=== PATIENT | male | born 1980 | race Caucasian/White ===

== ENCOUNTER 2016-07-31 18:06 | Emergency (ER) | payer OTHER ==
[~2016-07-31] VITALS: Ht 185.4 cm; Wt 93.3 kg
[~2016-07-31 18:06] MED LIST: FLX10 PO; KETO10TA PO
[2016-07-31 18:16] VITALS: TEMP 37.5; Ht 185.4 cm; Wt 93.3 kg
--- NOTE | 2016-07-31 19:11 | EMERGENCY ROOM VISIT NOTE ---
History Report prepared by Jennifer: [place] Under the Supervision of: Dr. Adams Linton M.D. First contact with patient: 18:51 Chief Complaint: ANXIETY Stated Complaint: MENTAL HEALTH EVAL, SLURRING WORDS, ACTING WIERD History of Present Illness The patient is a 36 year old male who presents to the Emergency Room with complaints of worsening anxiety that began prior to arrival. The patient states that recently he has had an increase in stress in his life. He states that his recently had a complicated delivery and was flown to [place]. 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 He states that his mother has a history of manic depression, but he denies any diagnosis of anxiety or depression. The patient notes that he has had a decrease in sleep recently. He states that today he went to his PCP's office and was slurring his words. The patient states that he was prescribed Klonopin. He states that since then he has been feeling numb. The patient states that he was instructed to come to the emergency department for further work up. He denies any suicidal or homicidal ideation. The patient notes that he has difficulty connecting things. Source of History: patient Onset: prior to arrival Position: other (global) Quality: other (anxiety) Timing: worsening Associated Symptoms: + numbness Note: Associated symptoms: Increased stress, decrease in sleep Review of Systems See HPI for pertinent positives & negatives. A total of 10 systems reviewed and were otherwise negative. Past Medical & Surgical Medical Problems: (1) Anxiety (2) Asthma (3) Asthma, Unspecified (4) DDD (degenerative disc disease), cervical (5) Dental infection (6) Epilepsy (7) History of seizures (8) Personal History, Pneumonia (Recurrent) (9) Syncope (10) Tobacco Use Disorder Surgical Problems: (1) H/O colonoscopy (2) H/O esophagogastroduodenoscopy (3) History of cholecystectomy (4) S/P cholecystectomy Family History FH: HTN (hypertension) FH: cancer FH: gallbladder disease FH: heart disease GRANDFATHER FH: migraines Social History Smoking Status: Never Smoker Alcohol Use: none Drug Use: none Marital Status: Housing Status: lives with significant other Occupation Status: employed Current/Historical Medications Scheduled PRN [Anti-Anxiety], 1 TAB PO DAILY PRN for PRN Allergies Coded Allergies: Diazepam (Verified Allergy, Severe, WAS TOLD "NOT TO TAKE", 07/31/16) Codeine (Verified Allergy, Mild, ITCHING, 07/31/16) Gadobutrol (Verified Allergy, Unknown, became code purple from [id number] adm, 07/31/16) Gadolinium Derivatives (Verified Adverse Reaction, Severe, Unresponsive requiring endotracheal intubation, 07/31/16) Unresponsive requiring endotracheal intubation visit [id number] Uncoded Allergies: CONTRAST MEDIA (Allergy, Severe, STOPPED BREATHING, 06/08/15) Physical Exam Vital Signs Date Time Temp Pulse Resp B/P Pulse Ox O2 Delivery O2 Flow Rate FiO2 07/31/16 21:06 71 18 116/68 95 07/31/16 18:16 37.5 90 18 123/81 94 Room Air Physical Exam GENERAL: Patient is in no acute distress. HEENT: No acute trauma, normocephalic atraumatic, mucous membranes moist, no nasal congestion, no scleral icterus. NECK: No stridor, no adenopathy, no meningismus, trachea is midline. LUNGS: Clear to auscultation bilaterally, no wheeze, no rhonchi, breath sounds equal. HEART: Without murmurs gallops or rubs, regular rate and rhythm. ABDOMEN: Soft, nontender, bowel sounds positive, no hernias, no peritonitis. EXTREMITIES: No cyanosis or edema, full range of motion of all the joints without pain or difficulty, no signs for acute trauma. NEUROLOGIC: Oriented x 3, no acute motor or sensory deficits, no focal weakness. SKIN: No rash, no jaundice, no diaphoresis. PSYCH: Somewhat anxious, cooperative. Admits to increased anxiety and stress, denies suicidal ideation. Medical Decision & Procedures Laboratory Results 07/31/16 19:27 07/31/16 19:27 Test 07/31/16 18:44 07/31/16 19:27 Urine Color YELLOW Urine Appearance CLEAR (CLEAR) Urine pH 5.0 (4.5-7.5) Urine Specific [place] 1.031 (1.000-1.030) Urine Protein NEG (NEG) Urine Glucose (UA) NEG (NEG) Urine Ketones NEG (NEG) Urine Occult Blood NEG (NEG) Urine Nitrite NEG (NEG) Urine Bilirubin NEG (NEG) Urine Urobilinogen NEG (NEG) Urine Leukocyte Esterase NEG (NEG) Urine Opiates Screen NEG (NEG) Urine Methadone, Qualitative NEG (NEG) Urine Barbiturates NEG (NEG) Urine Phencyclidine (PCP) Level NEG (NEG) Ur Amphetamine/Methamphetamine NEG (NEG) MDMA (Ecstasy) Screen NEG (NEG) Urine Benzodiazepines Screen NEG (NEG) Urine Cocaine Metabolite NEG (NEG) Urine Marijuana (THC) NEG (NEG) Red Blood Count 4.81 M/uL (4.7-6.1) Mean Corpuscular Volume 85.9 fL (80-100) Mean Corpuscular Hemoglobin 30.8 pg (25-34) Mean Corpuscular Hemoglobin Concent 35.8 g/dl (32-36) RDW Standard Deviation 40.8 fL (36.4-46.3) RDW Coefficient of Variation 13.0 % (11.5-14.5) Mean Platelet Volume 9.2 fL (7.4-10.4) Anion Gap 9.0 mmol/L (3-11) Est Creatinine Clear Calc Drug Dose 121.7 ml/min Estimated GFR () 120.3 Estimated GFR (Non- 103.8 BUN/Creatinine Ratio 13.5 (10-20) Calcium Level 9.0 mg/dl (8.5-10.1) Total Bilirubin 0.8 mg/dl (0.2-1) Aspartate Amino Transf (AST/SGOT) 38 U/L (15-37) Alanine Aminotransferase (ALT/SGPT) 89 U/L (12-78) Alkaline Phosphatase 54 U/L (45-117) Total Protein 7.5 gm/dl (6.4-8.2) Albumin 4.3 gm/dl (3.4-5.0) Globulin 3.2 gm/dl (2.5-4.0) Albumin/Globulin Ratio 1.3 (0.9-2) Thyroid Stimulating Hormone (TSH) 0.892 uIu/ml (0.300-4.500) Salicylates Level < 1.7 mg/dl (2.8-20) Acetaminophen Level < 2 ug/ml (10-30) Ethyl Alcohol mg/dL < 3.0 mg/dl (0-3) Laboratory results reviewed by me. ECG Indication: other (anxiety) Rate (beats per minute): 70 Rhythm: normal sinus Findings: no acute ischemic change, no ectopy ED Course 1853: The patient was evaluated in room A6. A complete history and physical exam was performed. Medical Decision The patient is a 36 year old male who presents to the ED with complaints of anxiety. Differential diagnoses considered include drug or alcohol abuse, electrolyte imbalance, thyroid disorder, anxiety, situational anxiety, depression. There is no leukocytosis or concerning anemia. No significant electrolyte abnormality, kidney failure or hepatitis. The patient appears to be in a euthyroid state. Urinalysis does not show infection. Urine tox was negative. Aspirin, Tylenol and alcohol levels were undetectable. EKG showed a sinus rhythm, no acute ischemia. The patient is doing well, he was felt medically clear. He was seen by the psychiatry caser. The patient is being discharged home with continued outpatient care. He will take his medications as prescribed by his doctor's office for his anxiety. Patient has agreed to return here for suicidal thoughts , worsening of his anxiety or if not doing well as an outpatient. Impression Primary Impression: Anxiety Scribe Attestation The scribe's documentation has been prepared under my direction and personally reviewed by me in its entirety. I confirm that the note above accurately reflects all work, treatment, procedures, and medical decision making performed by me. Departure Information Dispostion Home / Self-Care Referrals Rocio Gonzalez M.D. (MEDICAL) (PCP) Forms HOME CARE DOCUMENTATION FORM, IMPORTANT VISIT INFORMATION Patient Instructions My [facility] Additional Instructions meds as prescribed by your doctor for anxiety return if feeling suicidal or if things are worsening all lab testing today was ok
[2016-07-31 19:24] LABS: URINE APPEARANCE CLEAR (CLEAR); URINE BILIRUBIN NEG (NEG); URINE COLOR YELLOW; URINE NITRITE NEG (NEG); URINE SPECIFIC GRAVITY 1.031 (1.000-1.030); UROBILINOGEN NEG (NEG); ZZUR CULT IF INDIC CLEAN CATCH NO
[2016-07-31 19:38] LABS: BENZODIAZEPINE, URINE NEG (NEG); COCAINE,URINE NEG (NEG); PHENCYCLIDINE, URINE NEG (NEG)
[2016-07-31 19:40] LABS: HEMATOCRIT 41.3 % (42-52); MEAN CELL VOLUME 85.9 fL (80-100); MEAN CORPUSCULAR HEMOGLOBIN 30.8 pg (25-34); MEAN CORPUSCULAR HGB CONC 35.8 g/dl (32-36); MEAN PLATELET VOLUME 9.2 fL (7.4-10.4); PLATELET COUNT 256 K/uL (130-400); RED BLOOD COUNT 4.81 M/uL (4.7-6.1); WHITE BLOOD COUNT 6.33 K/uL (4.8-10.8)
[2016-07-31 19:42] LABS: MANUAL MICROSCOPIC REQUIRED? NO; REVIEW REQ? NO
[2016-07-31 20:00] LABS: ACETAMINOPHEN < 2 ug/ml (10-30); BUN/CREATININE RATIO 13.5 (10-20); CREATININE 0.93 mg/dl (0.60-1.40); POTASSIUM 3.6 mmol/L (3.5-5.1)
[2016-07-31 20:10] LABS: ALB/GLOB RATIO 1.3 (0.9-2); THYROID STIMULATING HORMONE 0.892 uIu/ml (0.300-4.500)
[2016-07-31] MEDS ORDERED: ANTI-ANXIETY PO (20:42)
[2016-07-31 21:06] VITALS: BP 116/68; PULSE 71; O2SAT 95
== END 2016-07-31 21:07 | disposition home or self-care (01) ==
LOC: C.EDB 18:07 → C.EDA 21:07
DX: F41.9 Anxiety disorder, unspecified (principal); J45.909 Unspecified asthma, uncomplicated; G40.909 Epilepsy, unspecified, not intractable, without status epilepticus; M50.30 Other cervical disc degeneration, unspecified cervical region; Z87.01 Personal history of pneumonia (recurrent); Z90.49 Acquired absence of other specified parts of digestive tract; Z98.890 Other specified postprocedural states; Z81.8 Family history of other mental and behavioral disorders; Z82.49 Family history of ischemic heart disease and other diseases of the circulatory system; Z82.0 Family history of epilepsy and other diseases of the nervous system

== ENCOUNTER 2016-10-29 11:34 | Emergency (ER) | payer OTHER ==
[~2016-10-29] VITALS: Ht 185.4 cm; Wt 93.8 kg
[~2016-10-29 11:34] MED LIST changes: +ANTI-ANXIETY PO; -FLX10 PO; -KETO10TA PO
[2016-10-29 11:44] VITALS: TEMP 36.9; Ht 185.4 cm; Wt 93.8 kg
[2016-10-29] MEDS ORDERED: CEFTRIAXONE SOD INJ 1 GM ADDVIAL IV STA (12:33)
[2016-10-29 13:03] LABS: BASO % 0.1 %; BASO ABS # 0.01 K/uL (0-0.2); COMPLETE YES; EOS % 1.1 %; HEMATOCRIT 41.4 % (42-52); IG% 0.2 %; LYMPH ABS # 1.63 K/uL (1.2-3.4); MEAN CELL VOLUME 86.8 fL (80-100); MEAN CORPUSCULAR HGB CONC 34.5 g/dl (32-36); MONO % 6.8 %; NEUT % 71.8 %; PLATELET COUNT 232 K/uL (130-400); RED BLOOD COUNT 4.77 M/uL (4.7-6.1); WHITE BLOOD COUNT 8.13 K/uL (4.8-10.8)
[2016-10-29 13:16] LABS: CALCIUM 9.1 mg/dl (8.5-10.1)
[2016-10-29 13:20] LABS: BLOOD UREA NITROGEN 11 mg/dl (7-18); C-REACTIVE PROTEIN < 0.29 mg/dl (0-0.29); CARBON DIOXIDE 28 mmol/L (21-32); CHLORIDE 105 mmol/L (98-107); GLUCOSE 87 mg/dl (70-99); SODIUM 140 mmol/L (136-145)
--- NOTE | 2016-10-29 13:22 | DIAGNOSTIC IMAGING REPORT ---
LEFT INDEX FINGER 3 VIEWS HISTORY: Left index finger swelling. LEFT 2ND FINGER, EVAL INFECTION COMPARISON: None. FINDINGS: There is no fracture or dislocation. Soft tissue swelling most pronounced at the PIP joint. No radiopaque foreign bodies. IMPRESSION: No fractures. Soft tissue swelling within the left index finger. Electronically signed by: Edinson Lim M.D. 10/29/2016 1:20 PM Dictated Date/Time: 10/29/2016 1:20 PM
[2016-10-29] MEDS ORDERED: SULF800T23 PO (13:50)
[2016-10-29] MEDS ORDERED: CEPH500C PO (13:50)
--- NOTE | 2016-10-29 13:51 | EMERGENCY ROOM VISIT NOTE ---
History First contact with patient: 11:55 Chief Complaint: FINGER PAIN Stated Complaint: SWELLING TO HAND-DRILLED A BIT INTO FINGER History of Present Illness Patient is a [id number] 36-year-old white male who presents to emergency department for evaluation of left second finger pain and swelling times one day. He states that he was doing some work on his deck about 5 days ago, and accidentally drilled a drill bit into the palmar aspect of the left second finger. He notes that the drill skipped off of the screw, puncturing the finger, just proximal to the PIP crease. He cleansed it with soap and water at that time. He states that there was fairly significant bleeding initially that was controlled with pressure. He states that it was initially swollen, but then the swelling went down and he was able to use an move the hand and finger normally until just yesterday. He states that the finger became circumferentially swollen, warm and slightly red. He notes pain that radiates into the dorsum and the palmar aspect of the hand. It is worse with any movement of the finger. He rates his discomfort a 8/10. He denies any fever or chills. No drainage or discharge from the site. His tetanus is up-to- date. He does have a history of cellulitis and skin abscess, denies a history of MRSA. Review of Systems Review of systems as per HPI. All other systems reviewed were negative. 10 systems reviewed. 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 See Problem List. Family History FH: HTN (hypertension) FH: cancer FH: gallbladder disease FH: heart disease GRANDFATHER FH: migraines Social History Smoking Status: Never Smoker Alcohol Use: none Drug Use: none Marital Status: Housing Status: lives with significant other Occupation Status: employed Current/Historical Medications Scheduled Cephalexin Monohydrate (Keflex), 500 MG PO QID Sulfa/Trimethoprim (Bactrim Ds 800MG/160MG), 1 TAB PO BID Allergies Coded Allergies: Diazepam (Verified Allergy, Severe, WAS TOLD "NOT TO TAKE", 10/29/16) Codeine (Verified Allergy, Mild, ITCHING, 10/29/16) Gadobutrol (Verified Allergy, Unknown, became code purple from [id number] adm, 10/29/16) Gadolinium Derivatives (Verified Adverse Reaction, Severe, Unresponsive requiring endotracheal intubation, 10/29/16) Unresponsive requiring endotracheal intubation visit [id number] Uncoded Allergies: CONTRAST MEDIA (Allergy, Severe, STOPPED BREATHING, 06/08/15) Physical Exam Vital Signs Date Time Temp Pulse Resp B/P Pulse Ox O2 Delivery O2 Flow Rate FiO2 10/29/16 13:56 87 16 132/74 98 10/29/16 11:44 36.9 94 18 129/80 98 Room Air Physical Exam CONSTITUTIONAL: Patient is a well-appearing 36-year-old white male who is awake and alert and in no acute distress. Vital signs are stable. CARDIOVASCULAR: Regular rate and rhythm. Peripheral pulses easily palpable. RESPIRATORY: Breath sounds equal and clear to auscultation without wheezes, rales, or rhonchi heard. Full and equal chest expansion without accessory muscle use or retractions. MUSCULOSKELETAL: Examination of the left hand show a small scabbed over puncture wound on the palmar aspect of the left second finger, just proximal to the PIP crease. His second finger is circumferentially swollen. Primary tenderness is noted over the PIP joint and in the proximal phalanx. Minimal discomfort over the DIP joint. He does have some discomfort over the MCP joint. The finger is slightly erythematous, not overtly hot to the touch or cellulitic. There is no fluctuance, no drainage or discharge from the puncture wound. He can be hyperextended slightly, has discomfort in the palmar aspect of his finger. He can be flexed fully, limited only by soft tissue swelling. There is no lymphangitic streaking noted. Range of motion of the thumb and third fourth and fifth fingers are full. Pulses are easily palpable. Sensation light touch is intact. INTEGUMENTARY: No lesions or rash, normal skin turgor. LYMPH: No lymphadenopathy. Medical Decision & Procedures ER Provider Diagnostic Interpretation: LEFT INDEX FINGER 3 VIEWS HISTORY: Left index finger swelling. LEFT 2ND FINGER, EVAL INFECTION COMPARISON: None. FINDINGS: There is no fracture or dislocation. Soft tissue swelling most pronounced at the PIP joint. No radiopaque foreign bodies. IMPRESSION: No fractures. Soft tissue swelling within the left index finger. Laboratory Results 10/29/16 12:50 Red Blood Count 4.77, Mean Corpuscular Volume 86.8, Mean Corpuscular Hemoglobin 30.0, Mean Corpuscular Hemoglobin Concent 34.5, Mean Platelet Volume 9.0, Neutrophils (%) (Auto) 71.8, Lymphocytes (%) (Auto) 20.0, Monocytes (%) (Auto) 6.8, Eosinophils (%) (Auto) 1.1, Basophils (%) (Auto) 0.1, Neutrophils # (Auto) 5.83, Lymphocytes # (Auto) 1.63, Monocytes # (Auto) 0.55, Eosinophils # (Auto) 0.09, Basophils # (Auto) 0.01 10/29/16 12:50 Test 10/29/16 12:50 White Blood Count 8.13 K/uL (4.8-10.8) Red Blood Count 4.77 M/uL (4.7-6.1) Hemoglobin 14.3 g/dL (14.0-18.0) Hematocrit 41.4 % (42-52) Mean Corpuscular Volume 86.8 fL (80-100) Mean Corpuscular Hemoglobin 30.0 pg (25-34) Mean Corpuscular Hemoglobin Concent 34.5 g/dl (32-36) Platelet Count 232 K/uL (130-400) Mean Platelet Volume 9.0 fL (7.4-10.4) Neutrophils (%) (Auto) 71.8 % Lymphocytes (%) (Auto) 20.0 % Monocytes (%) (Auto) 6.8 % Eosinophils (%) (Auto) 1.1 % Basophils (%) (Auto) 0.1 % Neutrophils # (Auto) 5.83 K/uL (1.4-6.5) Lymphocytes # (Auto) 1.63 K/uL (1.2-3.4) Monocytes # (Auto) 0.55 K/uL (0.11-0.59) Eosinophils # (Auto) 0.09 K/uL (0-0.5) Basophils # (Auto) 0.01 K/uL (0-0.2) RDW Standard Deviation 41.9 fL (36.4-46.3) RDW Coefficient of Variation 13.1 % (11.5-14.5) Immature Granulocyte % (Auto) 0.2 % Immature Granulocyte # (Auto) 0.02 K/uL (0.00-0.02) Erythrocyte Sedimentation Rate 3 mm/hr (0-14) Anion Gap 7.0 mmol/L (3-11) Est Creatinine Clear Calc Drug Dose 125.7 ml/min Estimated GFR () 125.1 Estimated GFR (Non- 108.0 BUN/Creatinine Ratio 12.0 (10-20) Calcium Level 9.1 mg/dl (8.5-10.1) C-Reactive Protein < 0.29 mg/dl (0-0.29) Medications Administered Medications (Trade) Dose Ordered Sig/Maricel Route Start Time Stop Time Status Last Admin Dose Admin Ceftriaxone Sodium (Rocephin Inj) 1 gm NOW STAT IV 10/29/16 12:33 10/29/16 12:35 DC 10/29/16 12:35 1 GM ED Course The patient was seen and evaluated as above. His old records were reviewed. I am familiar with him from prior visits. He has a history of cellulitis, and a left thigh abscess in 2014 which grew pansensitive sensitive Staph aureus. IV lock was initiated and laboratory studies were collected. X-rays of the left hand were obtained and findings noted soft tissue swelling without evidence for radiopaque foreign body. Patient was treated with Rocephin 1 g IV. CBC with differential, ESR, CRP and BMP were performed. He does not have an elevated white count or elevation of his inflammatory markers at this time. Differential diagnoses entertained included cellulitis, abscess, infectious tenosynovitis, tendon laceration, foreign body, among others. The patient will be placed on Keflex and Bactrim. There is no drainage or discharge to culture. Patient was encouraged to watch the area closely over the next 24-48 hours and to monitor for any worsening signs of infection. If he notes this, he should return to the emergency department immediately for further care and evaluation. He expressed understanding of this and was agreeable. He declined prescription analgesia. Medical Decision See ED Course. Impression Primary Impression: Finger infection Departure Information Prescriptions Sulfa/Trimethoprim (Bactrim Ds 800MG/160MG) Tab 1 TAB PO BID, #20 TAB Prov: Racheal Garcia PA 10/29/16 Cephalexin Monohydrate (Keflex) 500 Mg Cap 500 MG PO QID, #40 CAP Prov: Racheal Garcia PA 10/29/16 Referrals Rocio Gonzalez M.D. (MEDICAL) (PCP) Chris Fonseca MD Patient Instructions My [facility] Additional Instructions Cephalexin(Keflex) 500mg: Take one pill four times daily for 10 days for your skin infection. All antibiotics can cause diarrhea. If this occurs and you feel worse or it does not resolve in 1-2 days follow up with your doctor or return to the Emergency Department as this could be signs of serious underlying problems. Any medication can cause an allergic reaction, stop the pills immediately and return to the ER for rash, hives, breathing difficulties, or swelling. Trimethoprim-Sulfamethoxazole(Bactrim DS): Take one pill twice daily for 10 days for your skin infection. All antibiotics can cause diarrhea. If this occurs and you feel worse or it does not resolve in 1-2 days follow up with your doctor or return to the Emergency Department as this could be signs of serious underlying problems. Any medication can cause an allergic reaction, stop the pills immediately and return to the ER for rash, hives, breathing difficulties, or swelling. Ibuprofen(Motrin, Advil) may be used for fever or pain. Use 600mg every six hours as needed. Take with food. Avoid using more than 2400mg in a 24 hour period. Do not use 2400mg per day for more than three consecutive days without physician direction. Prolonged inappropriate use can lead to stomach upset or ulcers. This is available over the counter and typically comes in 200mg tablets. (AND/OR) Acetaminophen(Tylenol) may be used for fever or pain. Use 1000mg every eight hours as needed. Avoid using more than 3000mg in a 24 hour period. This is available over the counter. Rest and drink plenty of fluids. Continue current medications. Return to the ER for severe pain, persistent fevers, spreading redness, or any worsening of your condition. Follow up with orthopedic hand surgery (Dr. Fonseca at [facility]) in 1-2 days for a recheck of the current condition.
[2016-10-29 13:56] VITALS: BP 132/74; PULSE 87; O2SAT 98
== END 2016-10-29 13:57 | disposition home or self-care (01) ==
LOC: C.EDB 11:35 → C.EDD 13:57
DX: L08.9 Local infection of the skin and subcutaneous tissue, unspecified (principal); S61.231A Puncture wound without foreign body of left index finger without damage to nail, initial encounter; W29.8XXA Contact with other powered hand tools and household machinery, initial encounter; Y92.018 Other place in single-family (private) house as the place of occurrence of the external cause; F41.9 Anxiety disorder, unspecified; J45.909 Unspecified asthma, uncomplicated; M50.90 Cervical disc disorder, unspecified, unspecified cervical region; G40.909 Epilepsy, unspecified, not intractable, without status epilepticus; Z87.01 Personal history of pneumonia (recurrent); Z82.49 Family history of ischemic heart disease and other diseases of the circulatory system; Z80.9 Family history of malignant neoplasm, unspecified; Z83.79 Family history of other diseases of the digestive system

== ENCOUNTER 2017-01-01 00:39 | Emergency (ER) | payer OTHER ==
[~2017-01-01] VITALS: Ht 185.4 cm; Wt 91.6 kg
[~2017-01-01 00:39] MED LIST changes: -ANTI-ANXIETY PO; +CEPH500C PO; +SULF800T23 PO
[2017-01-01 00:45] VITALS: TEMP 36.6; Ht 185.4 cm; Wt 91.6 kg
[2017-01-01] MEDS ORDERED: CYCL10TA6 PO (01:41)
[2017-01-01] MEDS ORDERED: PERCOCET HOME PACK PO ONE (01:45)
[2017-01-01] MEDS ORDERED: HYDR-5688 PO (02:11)
--- NOTE | 2017-01-01 02:13 | EMERGENCY ROOM VISIT NOTE ---
History First contact with patient: 00:51 Chief Complaint: ALLERGIC REACTION Stated Complaint: HAND PAIN,ALLERGIC REACTION? Nursing Triage Summary: Pt complains of open wounds and swelling to bilateral hands. It started Thursday morning. Pt thinks he is having a reaction to a new concrete that he was using. History of Present Illness The patient is a 36 year old male who presents to the Emergency Room with complaints of pain of the bilateral hands. The patient states that he had been working with [place] [employer] yesterday morning and afternoon. He reports that a few hours after he began working with this material, he began having pain in the hands and noticed redness to the fingertips and between the fingers. He then put a rubber gloves on and continued working. He states that the symptoms seemed to worsen over the next few hours. He has not worked with this type of cement in the past. He rates his discomfort a 4/10. He denies any numbness or weakness. Review of Systems A complete 10 point review of systems was reviewed with the patient with pertinent positives and negatives as per history of present illness. All else were negative. 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 (13) Personal History, Pneumonia (Recurrent) (14) Syncope (15) Tobacco Use Disorder Surgical Problems: (1) H/O colonoscopy (2) H/O esophagogastroduodenoscopy (3) History of cholecystectomy (4) S/P cholecystectomy Family History FH: HTN (hypertension) FH: cancer FH: gallbladder disease FH: heart disease GRANDFATHER FH: migraines Social History Smoking Status: Never Smoker Alcohol Use: none Drug Use: none Marital Status: Housing Status: lives with significant other Occupation Status: employed Current/Historical Medications Scheduled PRN Cyclobenzaprine Hcl (Flexeril), 10 MG PO DAILY PRN for Muscle Spasms Hydrocodone/Acetaminophen 5MG/325MG (Bladen 5MG/325MG), 1 TABLET PO Q4H PRN for Pain Physical Exam Vital Signs Date Time Temp Pulse Resp B/P (MAP) Pulse Ox O2 Delivery O2 Flow Rate FiO2 8/3/17 02:36 68 16 115/87 97 01/01/17 00:45 36.6 80 16 127/84 96 Room Air Physical Exam VITALS: Vitals are noted on the nurse's note and reviewed by myself. Vital signs stable. GENERAL: This is a 36-year-old male, in no acute distress, nondiaphoretic, well- developed well-nourished. SKIN: There are erythematous ulcerations between the fingers of the right hand and on the distal finger pads of the left hand. The skin of bilateral hands and arms is very ashy and dry appearing. The fingers are minimally swollen. Sensation is intact. MUSCULOSKELETAL: Full range of motion of bilateral hands. NEURO: Patient was alert and oriented. Medical Decision & Procedures Medications Administered Medications (Trade) Dose Ordered Sig/Maricel Route Start Time Stop Time Status Last Admin Dose Admin Oxycodone/ Acetaminophen (Percocet 5/ 325MG Home Pack) 1 homepack UD ONCE PO 01/01/17 01:45 01/01/17 01:46 DC 01/01/17 02:24 1 HOMEPACK Medical Decision Differential diagnosis includes burn, contact dermatitis, allergic reaction, among others. The patient was evaluated as above. Exam is consistent with a contact dermatitis or a mild burn. I did discuss the case with the Poison Control Center, who recommended conservative treatment for such as that for a contact dermatitis or mild burn. The wounds were dressed in bacitracin and nonadherent dressings by nursing staff. The patient was given Percocet for pain. He was instructed to follow-up with his primary care provider as needed. He verbalized understanding of my assessment and treatment plan and was discharged home in good condition. [place] Drug Monitoring Program Search Results: patient reviewed within database, no issues identified Medication Reconcilliation Current Medication List: was personally reviewed by me Blood Pressure Screening Patient's blood pressure: Normal blood pressure Impression Primary Impression: Contact dermatitis Departure Information Dispostion Home / Self-Care Condition GOOD Prescriptions Hydrocodone/Acetaminophen 5MG/325MG (Bladen 5MG/325MG) Tab 1 TABLET PO Q4H Y for Pain, #10 TAB For Initial Treatment Prov: Tangela Shearer ., MARIUSZ 01/01/17 Referrals Rocio Gonzalez M.D. (MEDICAL) (PCP) Patient Instructions My [facility] Additional Instructions You have been treated in the Emergency Department today for a burn on your hands. You have received pain medicine in the emergency department which impairs your ability to operate a vehicle. It is illegal for you to drive after receiving these medicines. You have been prescribed Bladen to be used for pain control. This is a narcotic medication. You cannot drive or consume alcohol while on this medicine. This medicine should only be used for pain that cannot be controlled with over-the- counter pain medicines. Apply antibiotic ointment to the fingers and areas of abrams. Look for signs of infection of the wound including: increased pain, swelling, foul discharge, streaking, or increased temperature. If any of these are noticed you should return to the Emergency Department for further assessment and treatment. For pain control, you can use the following [id number] medicines (if >12 yo): - Regular strength (325mg/tab) Tylenol (acetaminophen) 2 tabs every 4-6 hours as needed. Do not exceed 12 tablets in a 24 hour period. Avoid taking more than 4 grams (4000 mg) of Tylenol per day. This includes any other sources of acetaminophen you may take on a regular basis. - Regular strength (200 mg/tab) Advil (ibuprofen) 1-2 tabs every 4-6 hours as needed. Do not exceed a dose of 3200 mg per day. Return for any signs of infection, such as increasing redness, increasing swelling, drainage or fevers. Return to the emergency department if your symptoms worsen despite treatment course outlined above. Problem Qualifiers Primary Impression: Contact dermatitis Contact dermatitis type: irritant
[2017-01-01 02:36] VITALS: BP 115/87; PULSE 68; O2SAT 97
== END 2017-01-01 02:25 | disposition home or self-care (01) ==
LOC: C.EDB 00:40
DX: L23.5 Allergic contact dermatitis due to other chemical products (principal); F41.9 Anxiety disorder, unspecified; J45.909 Unspecified asthma, uncomplicated; M50.90 Cervical disc disorder, unspecified, unspecified cervical region; G40.909 Epilepsy, unspecified, not intractable, without status epilepticus; Z87.01 Personal history of pneumonia (recurrent); Z82.49 Family history of ischemic heart disease and other diseases of the circulatory system; Z80.9 Family history of malignant neoplasm, unspecified; Z83.79 Family history of other diseases of the digestive system

== ENCOUNTER 2017-02-09 12:58 | Inpatient (IN) | payer OTHER ==
[~2017-02-09] VITALS: Ht 185.4 cm; Wt 101.6 kg
[~2017-02-09 12:58] MED LIST changes: -CEPH500C PO; +CYCL10TA6 PO; +HYDR-5688 PO; -SULF800T23 PO
[2017-02-09] MEDS ORDERED: MoRPHine SULFATE 10 MG/ML CARP/VIAL IV STA (13:20)
--- NOTE | 2017-02-09 13:43 | DIAGNOSTIC IMAGING REPORT ---
LEFT FOREARM 2 VIEWS ROUTINE CLINICAL HISTORY: foreign body left arm COMPARISON: None. DISCUSSION: No fractures or dislocations are visualized. There is nail shaped foreign body within the volar are soft tissues of the mid forearm. This measures 4.7 cm in length. IMPRESSION: 1. No acute fractures 2. Nail shaped foreign body within the volar soft tissues of the mid forearm Electronically signed by: Alvarez Patel M.D. 02/09/2017 1:42 PM Dictated Date/Time: 02/09/2017 1:41 PM
[2017-02-09] MEDS ORDERED: ONDANSETRON INJ 2 MG/ML 2 ML VIAL ONE ×2 (13:51→15:26)
[2017-02-09] MEDS ORDERED: CEFAZOLIN SOD 1000MG/55 ML D5W IV STA (14:15)
[2017-02-09] MEDS ORDERED: MoRPHine SULFATE 4 MG/ML 1 ML CARP\\VIAL IV STA (14:37)
--- NOTE | 2017-02-09 14:59 | Medical Consult ---
Consultation Date of Consultation: Feb 09, 2017. Attending Physician: Reason for Consultation: L forearm Nail gun Injury History of Present Illness 36 y.o male RHD, who accidentally shot a Finishing Nail into his left forearm. He placed a tourniquet around his upper arm and came into the ER. After x-rays were obtained I was consulted. He feels Numbness and tingling of all his fingers. Past Medical/Surgical History Medical Problems: (1) Anxiety Status: Chronic (2) Anxiety Status: Acute (3) Asthma Permanent Comment: remote- no recent issues Status: Chronic (4) DDD (degenerative disc disease), cervical Status: Chronic (5) Epilepsy Status: Chronic (6) Finger infection Status: Acute (7) History of seizures Status: Chronic Surgical Problems: (1) H/O colonoscopy Status: Chronic (2) H/O esophagogastroduodenoscopy Status: Chronic (3) S/P cholecystectomy Status: Chronic Family History FH: HTN (hypertension) FH: cancer FH: gallbladder disease FH: heart disease GRANDFATHER FH: migraines Social History Smoking Status: Current Every Day Smoker Drug Use: none Marital Status: Housing Status: lives with significant other Occupation Status: employed Allergies Coded Allergies: Diazepam (Verified Allergy, Severe, WAS TOLD "NOT TO TAKE", 02/09/17) Codeine (Verified Allergy, Mild, ITCHING, 02/09/17) Gadobutrol (Verified Allergy, Unknown, became code purple from [id number] [facility], 02/09/17) Gadolinium Derivatives (Verified Adverse Reaction, Severe, Unresponsive requiring endotracheal intubation, 02/09/17) Unresponsive requiring endotracheal intubation visit [id number] Uncoded Allergies: CONTRAST MEDIA (Allergy, Severe, STOPPED BREATHING, 06/08/15) Review of Systems Constitutional: No fever, No chills, No sweats, No weight loss, No weakness, No fatigue, No problem reported Eyes: No problem reported ENT: + dental problems (Has dentures) Respiratory: No problem reported Cardiovascular: No problem reported Abdomen: No problem reported Musculoskeletal: + muscle pain (L forearm pain) Neurologic: + numbness/tingling (L hand) Psychiatric: No problem reported Endocrine: No problem reported Hematologic / Lymphatic: No problem reported Integumentary: + bleeding (L forearm stopped after applying tiurniquet) Physical Exam Date Time Temp Pulse Resp B/P (MAP) Pulse Ox O2 Delivery O2 Flow Rate FiO2 02/09/17 13:07 36.8 83 16 144/89 97 Room Air General Appearance: WD/WN Head: normocephalic Respiratory/Chest: normal breath sounds, no respiratory distress, no accessory muscle use Cardiovascular: regular rate, rhythm Abdomen/GI: non tender Extremities/Musculoskelatal: + pertinent finding (LUE: Slight decrease sensation to Light touch in the Median nerve distribution. 2 + radial pulse. Motor to M/R/U/ AIN/ PIN intact. Small puncture wound mid-volar forearm. No active bleeding. Mild swelling in that area. Forearm soft.) Laboratory Results RADIOGRAPHS: AP & Lateral Left forearm shows a metallic linear object in the soft tissue. Assessment & Plan IMPRESSION: L Forearm Foreign Body. PLAN: After a lengthy discussion with the patient about my above findings and reviewed his radiographs, his treatment options of observation versus surgical I &D with removal of foreign body were discussed. He would like to proceed with surgery. He will remain NPO. Ancef was started while I was performing the H& P. The risks and benefits of surgery were discussed and I consented him for surgery. He understood all my instructions and explanations; all his questions were satisfactorily addressed.
--- NOTE | 2017-02-09 15:00 | EMERGENCY ROOM VISIT NOTE ---
History First contact with patient: 13:13 Chief Complaint: ARM PAIN Stated Complaint: NAIL IN L ARM History of Present Illness The patient is a 36 year old male who presents to the Emergency Room with complaints of shooting a nail in his left arm. The patient states that he was using a nail gun at home and was holding something up above him with his left arm and shot the nail and and missed and the nail went into his left forearm. It did not come out the other side. Since that time the patient has pain in the left forearm. He also admits to some numbness in his left fingers. The patient's tetanus is up-to-date. The patient last ate at approximately 10 AM today. The patient denies any significant past medical history. The patient is not diabetic. Review of Systems 6 system review was performed and was negative unless stated otherwise in history of present illness. 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 (13) Personal History, Pneumonia (Recurrent) (14) Syncope (15) Tobacco Use Disorder Surgical Problems: (1) H/O colonoscopy (2) H/O esophagogastroduodenoscopy (3) History of cholecystectomy (4) S/P cholecystectomy Family History FH: HTN (hypertension) FH: cancer FH: gallbladder disease FH: heart disease GRANDFATHER FH: migraines Social History Smoking Status: Current Every Day Smoker Alcohol Use: none Drug Use: none Marital Status: Housing Status: lives with significant other Occupation Status: employed Current/Historical Medications Scheduled PRN Cyclobenzaprine Hcl (Flexeril), 10 MG PO DAILY PRN for Muscle Spasms Physical Exam Vital Signs Date Time Temp Pulse Resp B/P (MAP) Pulse Ox O2 Delivery O2 Flow Rate FiO2 02/09/17 14:47 75 20 135/87 100 Room Air 02/09/17 13:07 36.8 83 16 144/89 97 Room Air Physical Exam GENERAL: 28-year-old white male appears uncomfortable secondary to pain. MENTAL Status: Alert and oriented 3. LUNGS: Clear auscultation without wheezes rales or rhonchi. CARDIAC: Regular rate and rhythm without murmur. Pulses is full and equal throughout. LEFT FOREARM: No gross bony deformity noted. There is a puncture wound on the proximal anterior aspect of the forearm. There is no active bleeding. Radial pulses 2+. The patient's hand feels cool to the touch. He will not move his fingers when asked. Medical Decision & Procedures ER Provider Diagnostic Interpretation: LEFT FOREARM 2 VIEWS ROUTINE CLINICAL HISTORY: foreign body left arm COMPARISON: None. DISCUSSION: No fractures or dislocations are visualized. There is nail shaped foreign body within the volar are soft tissues of the mid forearm. This measures 4.7 cm in length. IMPRESSION: 1. No acute fractures 2. Nail shaped foreign body within the volar soft tissues of the mid forearm Electronically signed by: Alvarez Patel M.D. 02/09/2017 1:42 PM Dictated Date/Time: 02/09/2017 1:41 PM Medications Administered Medications (Trade) Dose Ordered Sig/Maricel Route Start Time Stop Time Status Last Admin Dose Admin Morphine Sulfate (MoRPHine SULFATE INJ) 6 mg NOW STAT IV 02/09/17 13:20 02/09/17 13:22 DC 02/09/17 13:51 6 MG Ondansetron HCl (Zofran Inj) 4 mg STK-MED ONCE .ROUTE 02/09/17 13:51 02/09/17 13:52 DC 02/09/17 13:54 4 MG Cefazolin Sodium (Ancef 1000mg/55 ml D5W) 1,000 mg NOW STAT IV 02/09/17 14:15 02/09/17 14:16 DC 02/09/17 14:26 1,000 MG Morphine Sulfate (MoRPHine SULFATE INJ) 4 mg NOW STAT IV 02/09/17 14:37 02/09/17 14:38 DC 02/09/17 14:46 4 MG ED Course The patient was evaluated. IV access was obtained. The patient was given morphine 6 mg IV. X-ray of the left forearm was ordered and interpreted by the radiologist and myself as above with evidence of a nail in the soft tissue. The patient was given Ancef [address] Evans was consulted he stated that he will come and evaluate the patient. He will take the patient to the OR today. Medical Decision Due to the depth of the nail orthopedics was consulted. Medication Reconcilliation Current Medication List: was personally reviewed by me Blood Pressure Screening Patient's blood pressure: Normal blood pressure Impression Primary Impression: Foreign body in left forearm Departure Information Dispostion Being Evaluated By Surgeon Condition GOOD Referrals Rocio Gonzalez M.D. (MEDICAL) (PCP) Patient Instructions My [facility] Problem Qualifiers Primary Impression: Foreign body in left forearm Encounter type: initial encounter Qualified Codes: S50.852A - Superficial foreign body of left forearm, initial encounter
[2017-02-09] MEDS ORDERED: DEXAMETHASONE SOD INJ 4 MG/ML VIAL ONE (15:26)
[2017-02-09] MEDS ORDERED: PROPOFOL IV EMULSION 10 MG/ML 20 ML VIAL IV ONE (15:26)
[2017-02-09] MEDS ORDERED: MIDAZOLAM HCL 1 MG/ML 2ML VIAL ONE ×2 (15:26→17:55)
[2017-02-09] MEDS ORDERED: FENTANYL CITRATE INJ 50 MCG/1 ML 2 ML VIAL ONE (15:26)
[2017-02-09] MEDS ORDERED: LIDOCAINE HCL 2% 2 ML VIAL (20MG/ML) ONE (15:26)
[2017-02-09] MEDS ORDERED: LIDOCAINE/EPINEPHRINE 1% 20 ML VIAL ONE (15:41)
[2017-02-09] MEDS ORDERED: BUPIVACAINE 0.5 % 5 MG/1 ML MPF 30ML VIAL ONE (15:41)
[2017-02-09] MEDS ORDERED: CEFAZOLIN SOD 1 GM VIAL ONE (15:58)
[2017-02-09] MEDS ORDERED: ROCURONIUM BROMIDE 10 MG/ML 5 ML VIAL IV ONE (15:58)
[2017-02-09] MEDS ORDERED: SODIUM CHLORIDE 0.9% 1000ML 1,000 ML IV ONE (16:15)
[2017-02-09] MEDS ORDERED: LABETALOL HCL IV 5 MG/ML 20ML IV PRN (16:30)
[2017-02-09] MEDS ORDERED: ONDANSETRON INJ 2 MG/ML 2 ML VIAL IV PRN ×2 (16:30→17:00)
[2017-02-09] MEDS ORDERED: CEFAZOLIN 1000MG/55 ML D5W 55 ML IV SCH (16:30)
[2017-02-09] MEDS ORDERED: ATROPINE SULFATE 0.1 MG/ML 5ML SYR IV PRN (16:30)
--- NOTE | 2017-02-09 16:59 | Discharge Instructions ---
Discharge Instructions Date of Service Feb 09, 2017. Admission Reason for Admission: Nail In L Arm Discharge Discharge Diagnosis / Problem: Status post removal Foriegn Body Left Forearm Discharge Goals Goal(s): Decrease discomfort, Improve function, Increase independence Activity Recommendations Activity Limitations: per Instructions/Follow-up section (No Heavy lifting 2 weeks) Lifting Limitations: no more than 10 pounds (for 2 weeks) May Resume Sexual Activity: when tolerated Shower/Bathe: may shower/bathe in 3 days Driving or Machine Use: Not while using narcotics . Instructions / Follow-Up Instructions / Follow-Up Dr. Evans in 7-10 days. Call [phone] for appointment. Current Hospital Diet Patient's current hospital diet: Regular Diet Discharge Diet Recommended Diet: Regular Diet Procedures Procedures Performed: Left Forearm Incision and Drainage - Removal Foreign Body Removal Pending Studies Studies pending at discharge: no Work Instructions Return To Work: after follow-up (2-3 days) Medical Emergencies . Who to Call and When: Medical Emergencies: If at any time you feel your situation is an emergency, please call 911 immediately. . Non-Emergent Contact Non-Emergency issues call your: Surgeon Call Non-Emergent contact if: temperature is above 101.5, your pain is not controlled, wound has increased drainage, wound has increased redness . "Provider Documentation" section prepared by Aly Evans. . VTE Core Measure Inpt VTE Proph given/why not?: Other Anticoagulation (Asprin 325 mg twice a day for 1 week), T.E.D. Stockings
[2017-02-09] MEDS ORDERED: MoRPHine SULFATE 2 MG/ML CARP IV PRN (17:00)
[2017-02-09] MEDS ORDERED: OXYCODONE/ACETAMINOPHEN 5-325 TAB PO PRN (17:00)
[2017-02-09] MEDS ORDERED: MoRPHine SULFATE 4 MG/ML 1 ML CARP\\VIAL IV PRN (17:00)
--- NOTE | 2017-02-09 17:00 | [facility] Operative Report ---
Operative Report Operative Date Feb 09, 2017. Pre-Operative Diagnosis Foreign Body, Left Forearm Post-Operative Diagnosis Foreign Body, Left Forearm Procedure(s) Performed 1) Left forearm Removal Foreign Body Removal, deep. 2) Left Forearm Incision and Drainage. Surgeon Dr. Aly Evans Scratch Brusher Surgeon(s) Hollis Goodwin MD Fellow Estimated Blood Loss 2mL Findings Nail Left forearm. Clean wound. Fluids 600 Specimens Specimen A. Removed foreign body from left forearm Drains n/a Anesthesia GET Complication(s) None Disposition Recovery Room / PACU (Stable) Indications The patient had a nail gun injury to his left forearm earlier today and is complaining of severe pain. The patient understands the risks of surgery, which include but are not limited to: bleeding, infection, re-operation, damage to nerves and arteries, continued pain and DVT. The patient understands all of these instructions and explanations, all of their questions have been satisfactorily addressed. The patient has elected to proceed with surgery and the informed consent was signed. Description of Procedure The patient was taken to the Operating Room and placed in the supine position on the operating table. After general anesthetic was administered a multidisciplinary time-out was performed identifying my initials on the left limb as the correct and operative limb. 500 milligram of intravenous Ancef were given prior to making the incision as the patient had already been given a gram of Ancef in the emergency room. The left upper extremity was prepped and draped in the usual Orthopaedic sterile fashion. Using the wound created by the injury, it was planned to extend approximately 1 cm proximally and another centimeter distally. The skin edges were injected with a 50:50 mixture of 1% lidocaine and 0.5 % Marcaine with epi for a total of 2cc. The the skin was incised. Unfortunately a track could not be found to easily find the nail. The fascia was incised exposing the underlying muscle. Using fluoroscopy the nail was identified with gentle dissection deep within the muscle belly to find the nail prior to removal. There is very minimal bleeding. The wound was clean. The wound was copiously irrigated with normal saline. The skin were closed with 3-0 Prolene. The wound was covered Xerofoam, 4 x 4's and Tegaderms. The sponge and needle counts were correct. POST-OP: Patient will ice and elevate. He may utilize Tylenol and anti- inflammatories for pain control. He will follow-up in my office within 7-10 days. I attest to the content of the Intraoperative Record and any orders documented therein. Any exceptions are noted below.
--- NOTE | 2017-02-09 17:00 | [facility] Post Operative Brief Note ---
Immediate Operative Summary Operative Date Feb 09, 2017. Pre-Operative Diagnosis Foreign Body, Left Forearm Post-Operative Diagnosis Foreign Body, Left Forearm Procedure(s) Performed Left Forearm Incision and Drainage - Removal Foreign Body Removal Surgeon Dr. Aly Evans Pedal Assembler Surgeon(s) Hollis Goodwin MD Fellow Estimated Blood Loss 2mL Findings Nail Left forearm. Fluids (cc crystalloids) 600 Specimens Specimen A. Removed foreign body from left forearm Drains n/a Anesthesia GET Complication(s) None Disposition Recovery Room / PACU (Stable)
--- NOTE | 2017-02-09 17:03 | DIAGNOSTIC IMAGING REPORT ---
FOREARM 2 VIEWS ROUTINE CLINICAL HISTORY: REMOVAL OF NAIL IN FOREARM COMPARISON STUDY: None FLUOROSCOPY TIME: 24 seconds. FINDINGS: No evidence for radiopaque foreign body IMPRESSION: No evidence for radiopaque foreign body The above report was generated using voice recognition software. It may contain grammatical, syntax or spelling errors. Electronically signed by: Chris Martinez M.D. 02/09/2017 5:02 PM Dictated Date/Time: 02/09/2017 5:01 PM
[2017-02-09] MEDS ORDERED: GLYCOPYRROLATE INJ 0.2 MG/ML VIAL ONE (17:14)
[2017-02-09] MEDS ORDERED: NEOSTIGMINE METHYLSULFATE 5 MG/5 ML SYR ONE (17:14)
--- NOTE | 2017-02-09 17:41 | Anesthesiology Progress Note ---
Anesthesia Post Op Note Date & Time Feb 09, 2017 at 17:41 Vital Signs Pain Intensity: 1 Vital Signs Past 12 Hours Date Time Temp Pulse Resp B/P (MAP) Pulse Ox O2 Delivery O2 Flow Rate FiO2 02/09/17 17:06 36.4 76 16 149/88 99 Nasal Cannula 4 02/09/17 15:39 37.1 85 16 135/88 (104) 97 Room Air 02/09/17 15:15 75 20 135/87 100 02/09/17 14:47 75 20 135/87 100 Room Air 02/09/17 13:07 36.8 83 16 144/89 97 Room Air Notes Mental Status: alert / awake / arousable, participated in evaluation Pt Amnestic to Procedure: Yes Nausea / Vomiting: adequately controlled Pain: adequately controlled Airway Patency, RR, SpO2: stable & adequate BP & HR: stable & adequate Hydration State: stable & adequate Anesthetic Complications: no major complications apparent
[2017-02-09] MEDS: HYDROmorphone INJ 2 MG/ML SYR/VIAL IV PRN ×8 (17:43→18:33)
[2017-02-09] MEDS ORDERED: NURSING VERBAL MED ORDER ONE (17:55)
[2017-02-09] MEDS: MIDAZOLAM HCL 1 MG/ML 2ML VIAL IV PRN ×2 (17:55→18:15)
[2017-02-09 18:58] VITALS: BP 139/83; PULSE 83; TEMP 37; O2SAT 99
[2017-02-09 19:25] VITALS: BP 130/81; PULSE 92; O2SAT 92
[2017-02-09] MEDS ORDERED: NALOXONE HCL 0.4 MG/1 ML VIAL/CARP ONE ×2 (19:42→20:00)
--- NOTE | 2017-02-09 20:14 | Anesthesiology Progress Note ---
Anesthesia Progress Note Date of Service Feb 09, 2017. Progress Notes Code mickey was called for patient in ACU after his recovery. I was finishing a case in the OR and by the time I got there the team had given him narcan and he was moderately awake and maintaining his oxygen saturations. He had left the PACU about an hour earlier and seemed quite awake, got some percocet in ACU. Dr Evans aware, he and the hospitalist were discussing admitting him over night.
--- NOTE | 2017-02-09 21:35 | Medical Consult ---
Consultation Date of Consultation: Feb 09, 2017. Attending Physician: Deyvi Martinez MD History of Present Illness This is a 36yo M who presented to the ER after shooting a nail into his L forearm with a nail gun. Left forearm XR showed presence of a metallic linear object in the soft tissue. Ortho was consulted and Dr. Evans performed a foreign object removal and I&D. Patient received fentanyl and versed during procedure and was sent to PACU for recovery. States that he was in extreme pain and asked for medications. Was given dilaudid, versed and percocet during this recovery time. Later, a code purple was called due to patient becoming non- responsive with low O2 saturation. Was given Narcan x 2 and was very responsive. Patient is now awake and alert, sitting up in bed watching TV. Denies any confusion, lethargy, headache, pain, CP, dyspnea, SOB. Past Medical/Surgical History Medical Problems: (1) Foreign body in left forearm Status: Chronic (2) DDD (degenerative disc disease), cervical Status: Chronic (3) Epilepsy (remote) Status: Chronic (4) H/O colonoscopy Status: Chronic (5) H/O esophagogastroduodenoscopy Status: Chronic (6) History of seizures Status: Chronic (7) S/P cholecystectomy Status: Chronic Family History FH: HTN (hypertension) FH: cancer FH: gallbladder disease FH: heart disease GRANDFATHER FH: migraines Social History Smoking Status: Current Every Day Smoker Drug Use: none Marital Status: Housing Status: lives with significant other Occupation Status: employed Allergies Coded Allergies: Diazepam (Verified Allergy, Severe, WAS TOLD "NOT TO TAKE", 02/09/17) Codeine (Verified Allergy, Mild, ITCHING, 02/09/17) Gadobutrol (Verified Allergy, Unknown, became code purple from [id number] adm, 02/09/17) Gadolinium Derivatives (Verified Adverse Reaction, Severe, Unresponsive requiring endotracheal intubation, 02/09/17) Unresponsive requiring endotracheal intubation visit [id number] Uncoded Allergies: CONTRAST MEDIA (Allergy, Severe, STOPPED BREATHING, 06/08/15) Home Medications Home Meds and Scripts Medications Dose Route/Sig Max Daily Dose Days Date Category Flexeril (Cyclobenzaprine Hcl) 10 Mg Tab 10 Mg PO DAILY PRN 01/01/17 Reported Current Inpatient Medications Current Inpatient Medications Medications (Trade) Dose Ordered Sig/Mar[place]el Route Start Time Stop Time Status Last Admin Dose Admin Sodium Chloride 1,000 ml @ 100 mls/hr Q10H ONCE IV 02/09/17 16:15 02/10/17 02:14 Ondansetron HCl (Zofran Inj) 4 mg Q4H PRN IV 02/09/17 17:00 03/11/17 16:59 Sodium Chloride 1,000 ml @ 125 mls/hr Q8H IV 02/09/17 20:45 03/11/17 20:44 UNV Review of Systems Constitutional- no fever; no weight loss Eyes- no acute visual changes ENT- no sinus drainage; no pharyngitis Pulmonary- no cough, no wheezing, no shortness of breath Cardiac- no chest pain, no palpitations, no orthopnea, no dependent edema GI- no nausea, no vomiting, no diarrhea, no melena, no hematochezia - no dysuria, no hematuria Musculoskeletal- no arthralgias, no myalgias Derm- no rashes, no new skin lesions, no changing skin lesions Hematologic- no unusual bruising, no unusual bleeding Lymphatics- no adenopathy Endocrine- no polyuria or polydipsia; no heat or cold intolerance Neuro- no headaches, no focal neurologic symptoms Psych- no anxiety, no depression Physical Exam Date Time Temp Pulse Resp B/P (MAP) Pulse Ox O2 Delivery O2 Flow Rate FiO2 02/09/17 19:25 92 16 130/81 92 Room Air 02/09/17 18:58 37 83 24 139/83 99 Room Air 02/09/17 18:50 89 16 151/80 99 Room Air 02/09/17 18:35 83 16 163/81 99 Room Air 02/09/17 18:20 80 16 159/90 99 Room Air 02/09/17 18:11 149/88 02/09/17 18:10 75 20 02/09/17 18:10 75 20 96 02/09/17 18:06 137/96 02/09/17 18:05 76 15 02/09/17 18:05 75 15 02/09/17 18:01 152/101 02/09/17 18:00 80 12 02/09/17 18:00 81 14 02/09/17 17:55 92 27 02/09/17 17:55 90 27 73 02/09/17 17:51 130/92 02/09/17 17:50 91 26 02/09/17 17:50 89 26 100 02/09/17 17:46 145/88 02/09/17 17:45 83 25 02/09/17 17:45 85 25 100 02/09/17 17:44 36.8 02/09/17 17:41 73 21 02/09/17 17:41 73 21 134/98 100 02/09/17 17:36 69 02/09/17 17:36 69 16 156/102 100 02/09/17 17:31 69 10 02/09/17 17:31 69 10 143/89 100 02/09/17 17:26 69 13 144/83 100 02/09/17 17:26 69 13 02/09/17 17:21 71 14 141/78 100 02/09/17 17:21 71 14 02/09/17 17:16 71 14 02/09/17 17:16 71 14 100 02/09/17 17:15 134/82 02/09/17 17:06 36.4 76 16 149/88 99 Nasal Cannula 4 02/09/17 15:39 37.1 85 16 135/88 (104) 97 Room Air 02/09/17 15:15 75 20 135/87 100 02/09/17 14:47 75 20 135/87 100 Room Air 02/09/17 13:07 36.8 83 16 144/89 97 Room Air General Appearance: WD/WN, no apparent distress (Sitting upright in bed watching TV. Conversational. ) Head: normocephalic, atraumatic Eyes: normal inspection, PERRL ENT: hearing grossly normal Neck: supple, thyroid normal, trachea midline Respiratory/Chest: chest non-tender, lungs clear, normal breath sounds, no respiratory distress, no accessory muscle use Cardiovascular: regular rate, rhythm, no murmur, normal peripheral pulses Abdomen/GI: normal bowel sounds, non tender, soft, no organomegaly Back: normal inspection Extremities/Musculoskelatal: normal inspection, no calf tenderness, normal capillary refill, no pedal edema, + pertinent finding (L forearm with bandage in place. Clean/dry/intact. Ice in place. ) Neurologic/Psych: no motor/sensory deficits, alert, normal mood/affect, oriented x 3 Laboratory Results Last 24 Hours Test 02/09/17 19:43 02/09/17 19:53 Bedside Glucose 109 mg/dl Assessment & Plan This is a 36yo M who presented to the ER after shooting a nail into his L forearm with a nail gun. Altered mental status: resolved -Likely 2/2 opioid and benzodiazepines -Patient is naive to both substances -Now is A&Ox4, conversational, back to baseline -CXR: unrevealing EKG pending -CBC wnl. BMP is pending -Discontinued opioids -IV Tylenol and Toradol for pain control -IVFs -Monitor on Tele -AM labs DJD in cervical, lumbar spine: -Stable -Will hold Flexeril for now DVT Ppx: SCDs Code status: FULL Dispo: Per primary Thank you for this consultation. We will follow the patient with you during their hospital stay. You can reach a member of the [facility] Hospitalist Team 22/12 via pager @ . ATTENDING ADDENDUM care coordinated with EDILSON Champion please refer to her notes for full details, I agree with her notes patient seen and examined, records reviewed by myself as well on exam, patient seen sleeping but easily rousable oriented x 3 denies any symptoms pain well controlled no other symptoms VS noted and reviewed oriented , not in distress, speaks in sentences with no effort nor accessory muscle use normal rate, regular rhythm, no murmurs clear breath sounds bilaterally non distended, soft, nontender no bipedal edema, erythema, warmth no neuro deficits AST/ALT 50/80 ASSESSMENT/PLAN> ALTERED MENTAL STATUS POST OP REMOVAL OF FOREIGN OBJECT, LEFT FOREARM likely from Opioids, Benzo - responded well to Narcan - presently asymptomatic - avoid Narcotics as much as possible ff up EKG MILD AST/ALT ELEVATION - ff up as outpatient avoid alcohol other diagnoses and plan of care as per EDILSON Champion's notes Jewel Dhillon MD
[2017-02-09 21:36] VITALS: BP 123/87; PULSE 77; TEMP 37.1; O2SAT 98; Ht 185.4 cm; Wt 101.6 kg
[2017-02-09] MEDS ORDERED: SODIUM CHLORIDE 0.9% 1000ML 1,000 ML IV SCH (21:45)
[2017-02-09 21:52] LABS: BASO % 0.1 %; BASO ABS # 0.01 K/uL (0-0.2); HEMATOCRIT 47.6 % (42-52); IG% 0.1 %; LYMPH % 20.8 %; LYMPH ABS # 1.74 K/uL (1.2-3.4); MEAN CELL VOLUME 87.3 fL (80-100); MEAN CORPUSCULAR HEMOGLOBIN 29.5 pg (25-34); MEAN PLATELET VOLUME 9.8 fL (7.4-10.4); MONO % 1.3 %; NEUT % 77.7 %; PLATELET COUNT 289 K/uL (130-400); RED BLOOD COUNT 5.45 M/uL (4.7-6.1); WHITE BLOOD COUNT 8.35 K/uL (4.8-10.8)
[2017-02-09 21:56] LABS: COMPLETE YES; MEAN CORPUSCULAR HGB CONC 33.8 g/dl (32-36)
[2017-02-09] MEDS ORDERED: KETOROLAC TROMETHAMINE 30 MG/ML VIAL IV PRN (22:00)
[2017-02-09] MEDS ORDERED: ACETAMINOPHEN IV 100 ML IV PRN (22:00)
[2017-02-09 22:19] LABS: ALB/GLOB RATIO 1.3 (0.9-2); BUN/CREATININE RATIO 11.1 (10-20); CALCIUM 9.8 mg/dl (8.5-10.1); CREATININE 1.1 mg/dl (0.60-1.40); POTASSIUM 3.6 mmol/L (3.5-5.1)
--- NOTE | 2017-02-09 23:03 | DIAGNOSTIC IMAGING REPORT ---
CHEST ONE VIEW PORTABLE HISTORY: Altered mental status. COMPARISON: Chest 08/16/2015. FINDINGS: Bibasilar linear densities. The upper lung zones are clear. The heart is normal in size. No pleural effusions. No pneumothorax. No evidence for pulmonary edema. IMPRESSION: Bibasilar linear densities are nonspecific but favor subsegmental atelectasis. Electronically signed by: Edinson Lim M.D. 02/09/2017 11:02 PM Dictated Date/Time: 02/09/2017 11:00 PM
[2017-02-09 23:05] VITALS: BP 128/80; PULSE 68; TEMP 36.6; O2SAT 100
[2017-02-10] VITALS (7 sets, daily range): BP systolic 114–125; BP diastolic 66–77; PULSE 62–72; TEMP 36.5–36.8; O2SAT 98–100
[2017-02-10 06:42] LABS: HEMATOCRIT 40.7 % (42-52); MEAN CELL VOLUME 87.7 fL (80-100); MEAN CORPUSCULAR HGB CONC 35.4 g/dl (32-36); MEAN PLATELET VOLUME 9.3 fL (7.4-10.4); PLATELET COUNT 232 K/uL (130-400); RED BLOOD COUNT 4.64 M/uL (4.7-6.1)
[2017-02-10 06:49] LABS: PROTHROMBIN TIME (PATIENT) 10.7 SECONDS (9.0-12.0)
[2017-02-10 07:14] LABS: BUN/CREATININE RATIO 14.2 (10-20); CALCIUM 8.5 mg/dl (8.5-10.1); CREATININE 0.83 mg/dl (0.60-1.40); POTASSIUM 4.1 mmol/L (3.5-5.1)
--- NOTE | 2017-02-10 08:06 | Anesthesiology Progress Note ---
Anesthesia Post Op Note Date & Time Feb 10, 2017 at 08:06 Vital Signs Vital Signs Past 12 Hours Date Time Temp Pulse Resp B/P (MAP) Pulse Ox O2 Delivery O2 Flow Rate FiO2 02/10/17 07:10 36.5 62 20 116/74 (88) 100 Nasal Cannula 2.0 02/10/17 04:00 100 Nasal Cannula 2.0 02/10/17 03:45 36.5 72 18 114/66 (82) 99 Nasal Cannula 2.0 02/10/17 00:01 100 Nasal Cannula 2.0 02/09/17 23:05 36.6 68 18 128/80 (96) 100 Nasal Cannula 2.0 02/09/17 21:36 37.1 77 16 123/87 98 Nasal Cannula 2.0 Notes Mental Status: alert / awake / arousable, participated in evaluation Pt Amnestic to Procedure: Yes Nausea / Vomiting: adequately controlled Pain: adequately controlled Airway Patency, RR, SpO2: stable & adequate BP & HR: stable & adequate Hydration State: stable & adequate Anesthetic Complications: no major complications apparent
--- NOTE | 2017-02-10 09:41 | Orthopedic Progress Note ---
Orthopedic Progress Note Date of Service Feb 10, 2017. Subjective Post OP Day: 1 Reports: feeling well, pain controlled w PO medications, Denies: complaints, chest pain, SOB, nausea / vomiting, light headedness, calf pain, using [employer] Additional Notes: Patient became unresponsive after administration of pain meds post procedure yesterday and had to be administered Narcan. Pt states that he still feels slightly "groggy" at this point, but otherwise doing well. Objective dressing C/D/I, A&O x3 Good dexterity of digits in left hand. Able to make fist. Able to resist distraction and compression of digits. Able to resist distraction of pincer grasp. Mild edema of forearm, wrist, hand & digits. Tender around surgical incision site. N/V intact. Brisk cap refill. Palpable periph pulses. Able to reach near terminal flexion and extension at Left Elbow. Date Time Temp Pulse Resp B/P (MAP) Pulse Ox O2 Delivery O2 Flow Rate FiO2 02/10/17 08:00 98 Room Air 02/10/17 07:10 36.5 62 20 116/74 (88) 100 Nasal Cannula 2.0 02/10/17 04:00 100 Nasal Cannula 2.0 02/10/17 03:45 36.5 72 18 114/66 (82) 99 Nasal Cannula 2.0 02/10/17 00:01 100 Nasal Cannula 2.0 02/09/17 23:05 36.6 68 18 128/80 (96) 100 Nasal Cannula 2.0 02/09/17 21:36 37.1 77 16 123/87 98 Nasal Cannula 2.0 02/09/17 19:25 92 16 130/81 92 Room Air 02/09/17 18:58 37 83 24 139/83 99 Room Air 02/09/17 18:50 89 16 151/80 99 Room Air 02/09/17 18:35 83 16 163/81 99 Room Air 02/09/17 18:20 80 16 159/90 99 Room Air 02/09/17 18:11 149/88 02/09/17 18:10 75 20 02/09/17 18:10 75 20 96 02/09/17 18:06 137/96 02/09/17 18:05 76 15 02/09/17 18:05 75 15 02/09/17 18:01 152/101 02/09/17 18:00 80 12 02/09/17 18:00 81 14 02/09/17 17:55 92 27 02/09/17 17:55 90 27 73 02/09/17 17:51 130/92 02/09/17 17:50 91 26 02/09/17 17:50 89 26 100 02/09/17 17:46 145/88 02/09/17 17:45 83 25 02/09/17 17:45 85 25 100 02/09/17 17:44 36.8 02/09/17 17:41 73 21 02/09/17 17:41 73 21 134/98 100 02/09/17 17:36 69 02/09/17 17:36 69 16 156/102 100 02/09/17 17:31 69 10 02/09/17 17:31 69 10 143/89 100 02/09/17 17:26 69 13 144/83 100 02/09/17 17:26 69 13 02/09/17 17:21 71 14 141/78 100 02/09/17 17:21 71 14 02/09/17 17:16 71 14 02/09/17 17:16 71 14 100 02/09/17 17:15 134/82 02/09/17 17:06 36.4 76 16 149/88 99 Nasal Cannula 4 02/09/17 15:39 37.1 85 16 135/88 (104) 97 Room Air 02/09/17 15:15 75 20 135/87 100 02/09/17 14:47 75 20 135/87 100 Room Air 02/09/17 13:07 36.8 83 16 144/89 97 Room Air Laboratory Results 24 Hours: Test 02/09/17 19:50 02/10/17 06:25 White Blood Count 8.35 K/uL Red Blood Count 5.45 M/uL Hemoglobin 16.1 g/dL 14.4 g/dL Hematocrit 47.6 % 40.7 % Mean Corpuscular Volume 87.3 fL Mean Corpuscular Hemoglobin 29.5 pg Mean Corpuscular Hemoglobin Concent 33.8 g/dl Platelet Count 289 K/uL Mean Platelet Volume 9.8 fL Neutrophils (%) (Auto) 77.7 % Lymphocytes (%) (Auto) 20.8 % Monocytes (%) (Auto) 1.3 % Eosinophils (%) (Auto) 0.0 % Basophils (%) (Auto) 0.1 % Neutrophils # (Auto) 6.48 K/uL Lymphocytes # (Auto) 1.74 K/uL Monocytes # (Auto) 0.11 K/uL Eosinophils # (Auto) 0.00 K/uL Basophils # (Auto) 0.01 K/uL Prothromb Time International Ratio 1.0 Prothrombin Time 10.7 SECONDS Assessment & Plan Assessment: Day 1 s/p foreign body excision from Left forearm with I&D, resolved pulmonary issues which resulted in being admitted to telemetry overnight for observation. Likely does not respond well to Narcotics, exacerbating his pain and increase use resulted in code purple and resolved with Narcan x 2. Plan: Will discuss findings with Dr. Evans. From orthopedic stand point patient is cleared for discharge. Discharge pending medical clearance Upon discharge Ice affected area as instructed. Use Oral Tylenol or Advil for pain relief. F/u in Clinic with Dr. Evans in 1 week. May change dressing tomorrow. I, Dr. Evans, saw and examined the patient and agree with the above findings and plan of care. He may be discharged. He needs to f/u with primary doctor in 1 week.
--- NOTE | 2017-02-10 10:46 | Discharge Summary ---
Orthopedic Discharge Summary Admission Date/Reason Feb 09, 2017 at 20:36 Altered Awareness, Transient. Discharge Date/Disposition Feb 10, 2017 Home Diagnosis Principal Diagnosis: Left forearm foreign body Secondary Diagnoses/Problems: Altered awareness Procedure(s) Performed Excision of foreign body from Left forearm with I&D Consultations Had medicine consult due to unresponsiveness after administration of narcotic pain meds that was treated with Narcan. Medication Reconciliation Patient will be discharged with use of oral OTC Tylenol or NSAIDS for pain control Admission Physical Exam As per Admitting History & Physical. Hospital Course Patient was seen in ED yesterday afternoon a nail gun he was using inadvertently fired causing a finish nail to be embedded into his Left forearm. Patient was taken to OR hand had and open excision with I&D performed. Post operatively patient was transported to PACU and after administration of IV pain meds became unresponsive and then administered Narcan for alleviation. Patient was evaluated by medicine and place in surgical ICU for overnight monitoring. After seeing patient this AM he was cleared for discharge. Patient will only use OTC Tylenol or NSAIDS for pain relief. He will need to see his PCP in the next week for eval due to elevated LFT's and will F/U with Dr. Evans in our clinic in 1 week. Discharge Instructions Please refer to the electronic Patient Visit Report (Discharge Instructions) for additional information. Additional Copies To Aly Evans MD
--- NOTE | 2017-02-10 10:46 | Progress Note ---
Internal Med Progress Note Date of Service: Feb 10, 2017. Provider Documentation: SUBJECTIVE: Seen and examined at bedside. States having some pain in LUE but controlled Denies chest pain, SOB, dizziness Family at bedside OBJECTIVE: Vital Signs-as noted below Physical Exam: General Appearance:Moderately built and nourished, no apparent distress Head: normocephalic, Atraumatic Eyes: normal inspection, EOMI, PERRL Neck: supple, Trachea midline Respiratory/Chest: Normal breath sounds, CTA Cardiovascular: S1, S2, No murmur Abdomen/GI:Soft, Non tender, Bowel sounds present Extremities/Musculoskelatal:normal inspection, no edema, LUE forearm in bandage Neurologic/Psych:grossly no focal neurological deficits Skin: normal color, warm Lab data as noted below. ASSESSMENT & PLAN: Patent is a 36yr male who presented to the ER after shooting a nail into his L forearm with a nail gun. Altered mental status: Likely 2/2 opioid and benzodiazepines, responded well to Narcan resolved back to baseline No focal deficits on exam DJD in cervical, lumbar spine: Stable s/p foreign body excision from Left forearm with I&D by POD #1 Wound care per primary team Pain control Mild elevation AST/ALT Denies Tylenol/Alcohol use Advised to follow up with as outpatient DVT Px: SCDs Code status: FULL Dispo: Per primary team Advised to follow up with in 1 week Discuss with regarding possible need for further work up of liver function test as outpatient Advised to avoid driving until cleared by Vital Signs: Date Time Temp Pulse Resp B/P (MAP) Pulse Ox O2 Delivery O2 Flow Rate FiO2 02/10/17 08:00 98 Room Air 02/10/17 07:10 36.5 62 20 116/74 (88) 100 Nasal Cannula 2.0 02/10/17 04:00 100 Nasal Cannula 2.0 02/10/17 03:45 36.5 72 18 114/66 (82) 99 Nasal Cannula 2.0 02/10/17 00:01 100 Nasal Cannula 2.0 02/09/17 23:05 36.6 68 18 128/80 (96) 100 Nasal Cannula 2.0 02/09/17 21:36 37.1 77 16 123/87 98 Nasal Cannula 2.0 02/09/17 19:25 92 16 130/81 92 Room Air 02/09/17 18:58 37 83 24 139/83 99 Room Air 02/09/17 18:50 89 16 151/80 99 Room Air 02/09/17 18:35 83 16 163/81 99 Room Air 02/09/17 18:20 80 16 159/90 99 Room Air 02/09/17 18:11 149/88 02/09/17 18:10 75 20 02/09/17 18:10 75 20 96 02/09/17 18:06 137/96 02/09/17 18:05 76 15 02/09/17 18:05 75 15 02/09/17 18:01 152/101 02/09/17 18:00 80 12 02/09/17 18:00 81 14 02/09/17 17:55 92 27 02/09/17 17:55 90 27 73 02/09/17 17:51 130/92 02/09/17 17:50 91 26 02/09/17 17:50 89 26 100 02/09/17 17:46 145/88 02/09/17 17:45 83 25 02/09/17 17:45 85 25 100 02/09/17 17:44 36.8 02/09/17 17:41 73 21 02/09/17 17:41 73 21 134/98 100 02/09/17 17:36 69 02/09/17 17:36 69 16 156/102 100 02/09/17 17:31 69 10 02/09/17 17:31 69 10 143/89 100 02/09/17 17:26 69 13 144/83 100 02/09/17 17:26 69 13 02/09/17 17:21 71 14 141/78 100 02/09/17 17:21 71 14 02/09/17 17:16 71 14 02/09/17 17:16 71 14 100 02/09/17 17:15 134/82 02/09/17 17:06 36.4 76 16 149/88 99 Nasal Cannula 4 02/09/17 15:39 37.1 85 16 135/88 (104) 97 Room Air 02/09/17 15:15 75 20 135/87 100 02/09/17 14:47 75 20 135/87 100 Room Air 02/09/17 13:07 36.8 83 16 144/89 97 Room Air Lab Results: Results Past 24 Hours Test 02/09/17 19:43 02/09/17 19:50 02/10/17 06:25 Range/Units Bedside Glucose 109 70-99 mg/dl White Blood Count 8.35 8.50 4.8-10.8 K/uL Red Blood Count 5.45 4.64 4.7-6.1 M/uL Hemoglobin 16.1 14.4 14.0-18.0 g/dL Hematocrit 47.6 40.7 42-52 % Mean Corpuscular Volume 87.3 87.7 80-100 fL Mean Corpuscular Hemoglobin 29.5 31.0 25-34 pg Mean Corpuscular Hemoglobin Concent 33.8 35.4 32-36 g/dl Platelet Count 289 232 130-400 K/uL Mean Platelet Volume 9.8 9.3 7.4-10.4 fL Neutrophils (%) (Auto) 77.7 % Lymphocytes (%) (Auto) 20.8 % Monocytes (%) (Auto) 1.3 % Eosinophils (%) (Auto) 0.0 % Basophils (%) (Auto) 0.1 % Neutrophils # (Auto) 6.48 1.4-6.5 K/uL Lymphocytes # (Auto) 1.74 1.2-3.4 K/uL Monocytes # (Auto) 0.11 0.11-0.59 K/uL Eosinophils # (Auto) 0.00 0-0.5 K/uL Basophils # (Auto) 0.01 0-0.2 K/uL RDW Standard Deviation 41.4 42.1 36.4-46.3 fL RDW Coefficient of Variation 13.0 13.2 11.5-14.5 % Immature Granulocyte % (Auto) 0.1 % Immature Granulocyte # (Auto) 0.01 0.00-0.02 K/uL Sodium Level 137 137 136-145 mmol/L Potassium Level 3.6 4.1 3.5-5.1 mmol/L Chloride Level 101 104 98-107 mmol/L Carbon Dioxide Level 27 30 21-32 mmol/L Anion Gap 9.0 3.0 3-11 mmol/L Blood Urea Nitrogen 12 12 7-18 mg/dl Creatinine 1.10 0.83 0.60-1.40 mg/dl Est Creatinine Clear Calc Drug Dose 112.3 151.2 ml/min Estimated GFR () 98.2 129.4 Estimated GFR (Non- 84.7 111.6 BUN/Creatinine Ratio 11.1 14.2 10-20 Random Glucose 111 129 70-99 mg/dl Calcium Level 9.8 8.5 8.5-10.1 mg/dl Total Bilirubin 0.7 0.2-1 mg/dl Aspartate Amino Transf (AST/SGOT) 50 15-37 U/L Alanine Aminotransferase (ALT/SGPT) 80 12-78 U/L Alkaline Phosphatase 63 45-117 U/L Total Protein 8.6 6.4-8.2 gm/dl Albumin 4.8 3.4-5.0 gm/dl Globulin 3.8 2.5-4.0 gm/dl Albumin/Globulin Ratio 1.3 0.9-2 Prothrombin Time 10.7 9.0-12.0 SECONDS Prothromb Time International Ratio 1.0 0.9-1.1
--- NOTE | 2017-02-10 10:49 | Discharge Instructions ---
Discharge Instructions Date of Service Feb 10, 2017. Admission Reason for Admission: Altered Awareness, Transient Discharge Discharge Diagnosis / Problem: s/p foreign body excision from Left forearm with I&D Discharge Goals Goal(s): Decrease discomfort, Improve function Activity Recommendations Activity Limitations: per Instructions/Follow-up section Lifting Limitations: gradually increase as tolerated Exercise/Sports Limitations: gradually increase as tolerated . Instructions / Follow-Up Instructions / Follow-Up Advised to follow up with in 1 week Discuss with regarding possible need for further work up of liver function test as outpatient Advised to avoid driving until cleared by Follow up with as advised Current Hospital Diet Patient's current hospital diet: Regular Diet Discharge Diet Recommended Diet: Regular Diet Procedures Procedures Performed: 1) Left forearm Removal Foreign Body Removal, deep. 2) Left Forearm Incision and Drainage. Pending Studies Studies pending at discharge: no Work Instructions Return To Work: after follow-up (2-3 days) Medical Emergencies . Who to Call and When: Medical Emergencies: If at any time you feel your situation is an emergency, please call 911 immediately. . Non-Emergent Contact Non-Emergency issues call your: Primary Care Provider, Specialist (Orthopedic surgen) Call Non-Emergent contact if: you have a fever, your pain is not controlled, your pain is worsening, your pain is unusual for you, your pain is concerning you, wound has increased drainage, wound has increased redness, wound has increased pain, you have any medication questions . . "Provider Documentation" section prepared by Deyvi Martinez. . VTE Core Measure Inpt VTE Proph given/why not?: Other Anticoagulation (Asprin 325 mg twice a day for 1 week), T.E.D. Stockings
== END 2017-02-10 11:58 | disposition home or self-care (01) | DRG 605 ==
LOC: C.EDB 12:59 → C.2E 20:36 → EDBEDREQ 20:42 → ENRESERV 21:11
PROVIDERS: ADMIT Internal Medicine; ATTEND Internal Medicine
PROC: 0H9EXZZ Drainage of Left Lower Arm Skin, External Approach (ICD-10-PCS; principal; 2017-02-10)
DX: S50.852A Superficial foreign body of left forearm, initial encounter (principal); R40.4 Transient alteration of awareness; J45.909 Unspecified asthma, uncomplicated; G40.909 Epilepsy, unspecified, not intractable, without status epilepticus; F41.9 Anxiety disorder, unspecified; F17.200 Nicotine dependence, unspecified, uncomplicated; Z90.49 Acquired absence of other specified parts of digestive tract; W29.4XXA Contact with nail gun, initial encounter; Z87.01 Personal history of pneumonia (recurrent); Z82.49 Family history of ischemic heart disease and other diseases of the circulatory system; Z80.9 Family history of malignant neoplasm, unspecified; Z83.79 Family history of other diseases of the digestive system

== ENCOUNTER 2017-06-19 11:21 | Inpatient (IN) | payer OTHER ==
[~2017-06-19] VITALS: Ht 185.4 cm; Wt 91.9 kg
[~2017-06-19 11:21] MED LIST changes: -HYDR-5688 PO
--- NOTE | 2017-06-19 12:39 | EMERGENCY ROOM VISIT NOTE ---
History Report prepared by Jennifer: Mannie Barriga Under the Supervision of: Dr. True Pritchard M.D. First contact with patient: 12:22 Chief Complaint: MENTAL HEALTH EVALUATION Stated Complaint: MENTAL HEALTH CHECKUP History of Present Illness The patient is a 36 year old male who presents to the Emergency Room with concerns over his own worsening mental status/anxiety that he notes has been declining for the past 10 days. The patient states that he is suicidal which is not normal for him. He claimed that if he were to kill himself he "would probably jump off of something really tall." He has not tried to hurt himself to this point. The patient claims that this past year has been particularly rough and with his two twin daughters he has not bee sleeping much. He has not had an appetite either. The patient does follow with psych at [facility], and notes that at his last meeting she thought about filing a 302 petition. He denies any drugs or alcohol. He denies any recent fevers. Source of History: patient Onset: 10 days Position: other (Psych) Quality: other (Mental status/anxiety ) Timing: worsening Associated Symptoms: No fevers Review of Systems See HPI for pertinent positives & negatives. A total of 10 systems reviewed and were otherwise negative. 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 Nurse's notes were reviewed and I agree with. Family History FH: HTN (hypertension) FH: cancer FH: gallbladder disease FH: heart disease GRANDFATHER FH: migraines Social History Smoking Status: Never Smoker Alcohol Use: none Drug Use: none Marital Status: Housing Status: lives with significant other Occupation Status: employed Current/Historical Medications No Active Prescriptions or Reported Meds Allergies Coded Allergies: Diazepam (Verified Allergy, Severe, WAS TOLD "NOT TO TAKE", 02/09/17) Codeine (Verified Allergy, Mild, ITCHING, 02/09/17) Gadobutrol (Verified Allergy, Unknown, became code purple from [id number] adm, 02/09/17) Gadolinium Derivatives (Verified Adverse Reaction, Severe, Unresponsive requiring endotracheal intubation, 02/09/17) Unresponsive requiring endotracheal intubation visit [id number] Uncoded Allergies: CONTRAST MEDIA (Allergy, Severe, STOPPED BREATHING, 06/08/15) Physical Exam Vital Signs Date Time Temp Pulse Resp B/P (MAP) Pulse Ox O2 Delivery O2 Flow Rate FiO2 06/19/17 13:08 74 16 121/81 99 Room Air 06/19/17 11:27 36.9 83 18 145/79 99 Room Air Physical Exam General: Non-ill appearing middle age male in no acute distress. HEENT: Normal cephalic atraumatic. Pupils are equal round and reactive to light. Extraocular movements are intact. Oropharynx is pink with moist mucous membranes. No swelling of the mouth lips or tongue. Neck: Supple with a midline trachea. No meningeal signs or stiffness, no JVD or bruits. No Stridor. Chest: Clear to auscultation bilaterally. No wheezes or rhonchi. No increased work of breathing. Heart: regular rate and rhythm. Abdomen: Soft nontender, nondistended without rebound guarding or rigidity. Extremities: No cyanosis clubbing or edema. No calf tenderness or assymetry Spine/Back. Non tender to palpation. No CVA tenderness Skin: Good turgor without rashes. Neurologic exam: Cranial nerves two through 12 are intact. Motor and sensation are intact and symmetrical throughout. Psych: Denies homicidal thoughts. Positive suicidal thought. Poor insight/poor judgement. Medical Decision & Procedures Laboratory Results 06/19/17 12:42 Red Blood Count 4.84, Mean Corpuscular Volume 86.4, Mean Corpuscular Hemoglobin 30.8, Mean Corpuscular Hemoglobin Concent 35.6, Mean Platelet Volume 9.0, Neutrophils (%) (Auto) 48.9, Lymphocytes (%) (Auto) 41.3, Monocytes (%) (Auto) 8.1, Eosinophils (%) (Auto) 1.1, Basophils (%) (Auto) 0.4, Neutrophils # (Auto) 2.65, Lymphocytes # (Auto) 2.24, Monocytes # (Auto) 0.44, Eosinophils # (Auto) 0.06, Basophils # (Auto) 0.02 06/19/17 12:42 Test 06/19/17 12:42 06/19/17 13:10 White Blood Count 5.42 K/uL (4.8-10.8) Red Blood Count 4.84 M/uL (4.7-6.1) Hemoglobin 14.9 g/dL (14.0-18.0) Hematocrit 41.8 % (42-52) Mean Corpuscular Volume 86.4 fL (80-100) Mean Corpuscular Hemoglobin 30.8 pg (25-34) Mean Corpuscular Hemoglobin Concent 35.6 g/dl (32-36) Platelet Count 250 K/uL (130-400) Mean Platelet Volume 9.0 fL (7.4-10.4) Neutrophils (%) (Auto) 48.9 % Lymphocytes (%) (Auto) 41.3 % Monocytes (%) (Auto) 8.1 % Eosinophils (%) (Auto) 1.1 % Basophils (%) (Auto) 0.4 % Neutrophils # (Auto) 2.65 K/uL (1.4-6.5) Lymphocytes # (Auto) 2.24 K/uL (1.2-3.4) Monocytes # (Auto) 0.44 K/uL (0.11-0.59) Eosinophils # (Auto) 0.06 K/uL (0-0.5) Basophils # (Auto) 0.02 K/uL (0-0.2) RDW Standard Deviation 41.2 fL (36.4-46.3) RDW Coefficient of Variation 12.9 % (11.5-14.5) Immature Granulocyte % (Auto) 0.2 % Immature Granulocyte # (Auto) 0.01 K/uL (0.00-0.02) Anion Gap 5.0 mmol/L (3-11) Est Creatinine Clear Calc Drug Dose 121.7 ml/min Estimated GFR () 120.3 Estimated GFR (Non- 103.8 BUN/Creatinine Ratio 12.6 (10-20) Calcium Level 9.0 mg/dl (8.5-10.1) Total Bilirubin 0.5 mg/dl (0.2-1) Aspartate Amino Transf (AST/SGOT) 26 U/L (15-37) Alanine Aminotransferase (ALT/SGPT) 55 U/L (12-78) Alkaline Phosphatase 59 U/L (45-117) Total Protein 7.8 gm/dl (6.4-8.2) Albumin 4.1 gm/dl (3.4-5.0) Globulin 3.7 gm/dl (2.5-4.0) Albumin/Globulin Ratio 1.1 (0.9-2) Thyroid Stimulating Hormone (TSH) 0.933 uIu/ml (0.300-4.500) Salicylates Level < 1.7 mg/dl (2.8-20) Acetaminophen Level < 2 ug/ml (10-30) Ethyl Alcohol mg/dL < 3.0 mg/dl (0-3) Urine Color YELLOW Urine Appearance CLOUDY (CLEAR) Urine pH 6.5 (4.5-7.5) Urine Specific [place] 1.025 (1.000-1.030) Urine Protein NEG (NEG) Urine Glucose (UA) NEG (NEG) Urine Ketones NEG (NEG) Urine Occult Blood NEG (NEG) Urine Nitrite NEG (NEG) Urine Bilirubin NEG (NEG) Urine Urobilinogen NEG (NEG) Urine Leukocyte Esterase NEG (NEG) Urine WBC (Auto) 1-5 /hpf (0-5) Urine RBC (Auto) 0-4 /hpf (0-4) Urine Hyaline Casts (Auto) 1-5 /lpf (0-5) Urine Epithelial Cells (Auto) 10-20 /lpf (0-5) Urine Bacteria (Auto) NEG (NEG) Urine Crystals CALCIUM OXALATE (NONE Urine Mucus PRESENT (NONE PRSENT) Urine Opiates Screen NEG (NEG) Urine Methadone, Qualitative NEG (NEG) Urine Barbiturates NEG (NEG) Urine Phencyclidine (PCP) Level NEG (NEG) Ur Amphetamine/Methamphetamine NEG (NEG) MDMA (Ecstasy) Screen NEG (NEG) Urine Benzodiazepines Screen NEG (NEG) Urine Cocaine Metabolite NEG (NEG) Urine Marijuana (THC) NEG (NEG) Laboratory studies as stated above per my review. ED Course 1226: Past medical records reviewed. The patient was evaluated in room A7, and a complete history and physical examination were performed. 1455: The psychiatric corrections caseworker has suggested placing the patient in [address] [place] [address]. A bed search will ensue. There will likely be a bed for the patient. Medical Decision Differential diagnosis includes; becky, depression, toxicologic, electrolyte or metabolic abnormality. This patient comes in as described above. He has a recent history of suicidal ideations and also anxiety . he does appear to have some manic behavior. he is cooperative and is willing to come into the hospital. Multiple blood tests was obtained for medical clearance. He has nothing to suggest acute electrolyte, toxicologic, metabolic or infectious etiology. He is medically cleared. He was Further evaluated by her psychiatric corrections caseworker. He did complain that he' s been having intermittent headaches and we did a CAT scan ofhis head and it is unremarkable. He will be admitted to [facility] for further treatment and evaluation. Impression Primary Impression: Suicidal ideation Additional Impressions: Depression Becky Scribe Attestation The scribe's documentation has been prepared under my direction and personally reviewed by me in its entirety. I confirm that the note above accurately reflects all work, treatment, procedures, and medical decision making performed by me. Departure Information Dispostion Mental Health Acute Care Prescriptions No Active Prescriptions or Reported Meds Referrals Rocio Gonzalez M.D. (MEDICAL) (PCP) Patient Instructions My [facility] Problem Qualifiers
[2017-06-19 13:04] LABS: BASO % 0.4 %; BASO ABS # 0.02 K/uL (0-0.2); EOS % 1.1 %; EOS ABS # 0.06 K/uL (0-0.5); HEMATOCRIT 41.8 % (42-52); HEMOGLOBIN 14.9 g/dL (14.0-18.0); IG# 0.01 K/uL (0.00-0.02); LYMPH % 41.3 %; LYMPH ABS # 2.24 K/uL (1.2-3.4); MEAN CELL VOLUME 86.4 fL (80-100); MEAN CORPUSCULAR HEMOGLOBIN 30.8 pg (25-34); MEAN CORPUSCULAR HGB CONC 35.6 g/dl (32-36); MONO % 8.1 %; MONO ABS # 0.44 K/uL (0.11-0.59); NEUT % 48.9 %; NEUT ABS # 2.65 K/uL (1.4-6.5); PLATELET COUNT 250 K/uL (130-400); RED CELL DISTRIBUTION WIDTH CV 12.9 % (11.5-14.5); RED CELL DISTRIBUTION WIDTH SD 41.2 fL (36.4-46.3); WHITE BLOOD COUNT 5.42 K/uL (4.8-10.8)
[2017-06-19 13:21] LABS: ALBUMIN 4.1 gm/dl (3.4-5.0); CREATININE 0.93 mg/dl (0.60-1.40); POTASSIUM 4.2 mmol/L (3.5-5.1)
[2017-06-19 13:32] LABS: TOTAL PROTEIN 7.8 gm/dl (6.4-8.2)
--- NOTE | 2017-06-19 15:33 | DIAGNOSTIC IMAGING REPORT ---
CT SCAN OF THE BRAIN WITHOUT IV CONTRAST CLINICAL HISTORY: Headache. COMPARISON STUDY: CT of the brain dated 05/01/2016. TECHNIQUE: Unenhanced axial CT scan of the brain is performed from the vertex to the skull base. A dose lowering technique was utilized adhering to the principles of ALARA. CT DOSE: 614.27 mGy.cm FINDINGS: Brain parenchyma: The brain parenchyma is normal in appearance. There is no hemorrhage, mass effect, or evidence of acute territorial ischemia by CT criteria. Negron-white matter is preserved. No extra-axial fluid collection is seen. Ventricles, sulci, cisterns: Normal in configuration. Intracranial vasculature: The visualized intracranial vasculature at the skull base is normal in appearance. Calvarium: Unremarkable. Sinuses and mastoids: The visualized paranasal sinuses are clear. The mastoid air cells are well pneumatized. Orbits: The bony orbits are grossly intact. IMPRESSION: No acute intracranial abnormality. Electronically signed by: Adams Randall M.D. 06/19/2017 3:32 PM Dictated Date/Time: 06/19/2017 3:31 PM
[2017-06-19] MEDS ORDERED: BISMUTH SUBSALICYLATE PER ML OMNICELL CHARGE PO PRN (16:30)
[2017-06-19] MEDS ORDERED: MAGNESIUM HYDROXIDE SUSP 30 ML UDC PO PRN (16:30)
[2017-06-19] MEDS ORDERED: ALUMINUM/MAGNESIUM SUSP 30 ML UDC PO PRN (16:30)
[2017-06-19] MEDS ORDERED: SODIUM CHLORIDE 0.65% NA SOLN 45 ML (OCEAN) PRN (16:30)
[2017-06-19] MEDS ORDERED: ACETAMINOPHEN 325 MG TAB PO PRN (16:30)
[2017-06-19] MEDS ORDERED: hydrOXYzine HCL 25 MG TAB PO PRN ×2 (16:30)
[2017-06-19 16:50] VITALS: O2SAT 99
[2017-06-19 18:42] VITALS: BP 120/65; PULSE 77; TEMP 36.9; Ht 185.4 cm; Wt 91.9 kg
[2017-06-20 06:59] VITALS: BP_SYST 106; BP_SYST 117; BP_DIAS 67; BP_DIAS 80; PULSE 67; PULSE 74; TEMP 36.5
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
[2017-06-20] MEDS: LITHIUM CARBONATE SR 300 MG TAB (LITHOBID) PO SCH ×4 (18:56→22:52)
[2017-06-21] MEDS ORDERED: NURSING VERBAL MED ORDER ONE (03:15)
[2017-06-21] MEDS ORDERED: ONDANSETRON 4 MG TAB PO ONE (03:30)
[2017-06-21 07:05] VITALS: BP_SYST 111; BP_SYST 116; BP_DIAS 70; BP_DIAS 76; PULSE 70; PULSE 75; TEMP 36.8
--- NOTE | 2017-06-21 09:00 | Psychiatric Progress Notes ---
Progress Note Date of Service Jun 21, 2017. Interval History Tylor Carrasquillo is a 36-year-old male admitted on Jun 19, 2017 at 16:26 who currently lives in [place] with his , 13-year-old step daughter, and twin 10 month old daughters. Tylor Carrasquillo was admitted on a 201 voluntary commitment. Patient is admitted from home. The patient was brought to the ED by his . Information provided by the patient is considered to be reliable. Chief Complaint "I am nauseated". Subjective Patient was seen & assessed interval progress reviewed with Treatment Team Slept 5.25 hours zofran 4mg for nausea overnight to visit at 11am today with his children lithium loading last night, trough level at 11am today 0.7 Mood was a 9/10, 'More focussed" in community meeting but with this provider later in the afternoon he noted it is an "11/10" but namely refering to feeling "restless and activated" He notes his thoughts are equally as fast. He continues to feel nauseated but denies other problems with lithium (no tremor, no discordination, no cognitive cloudiness) He continues to wish to feel better and is motivated for inpatient care. He states he is not having the thought that he is a faulty computer and needs to be thrown away, and not actively planning suicide. "I don't know where those thoughts came from" He denies s/sx of psychosis He rates anxiety as a 5/10. Review of Systems nausea, loose bowels and restless o/w denies concerns physically on ROS Sleep Information Total Hours of Sleep: 5.25 Meal Information Percent of Breakfast Consumed: 100 Percent of Lunch Consumed: 100 Percent of Dinner Consumed: 100 Mental Status Exam During interview pt is: alert and oriented, cooperative Appearance: appropriately dressed, appropriately groomed Eye contact is: good Motor behavior is: no abnormal motor movements, psychomotor agitation ( restless bouncing leg entire visit) Speech: is pressured (rapid) Affect: anxious Mood is: other (anxious and appears restless) Thought process: goal directed, clear, coherent Thought content: reality based without delusions Suicidal thought are: denied Homicidal thoughts are: denied Hallucinations: denies auditory, denies visual Cognition: memory grossly intact, attention grossly intact, language grossly intact Intelligence estimated to be: above average Insight: fair Judgement: fair Impression Patient's presentation is complicated by compulsions, chronically elevated mood with driven racing thoughts, and impulsivity with activities. Differntial includes bipolar I, manic, Asperger's traits, OCD. Highly likely the majority of his recent behavior could be primarily due to a bipolar I becky. He was loaded with lithium 06/20/17 and leverl on 06/21 was 0.7 will significant nausea. Will proceed with 900mg/hs and monitor. Carried forward: Pt states he has been selected to donate a kidney, but has not been formally matched at this point in time. On further exploration these people to whom he submitted to donate to seemed to come up impulsively a few weeks ago when he went on line to register. It is not clear if this is a true desire of his or a manic decision. Due to the severity of his symptoms, it was recommended to start Mckenna, and should he choose to continue the donation process, he could be switched to something more appropriate once stable. Pt was in agreement with this plan. Plan (1) Bipolar I disorder with becky 06/20 - Pt to be started on Mckenna loading this evening and will receive 900mg Lithobid at 1700, 1900, and 2100. Will evaluate lithium level tomorrow morning. - Family meeting encouraged with or other identified supports - Encourage participation in group therapy and activities - Coordination of care with outpatient providers. 06/21 - litihium trough level after loading 0.7, will schedule 900mg/hs, and provide prn zofran for nausea (2) Suicidal ideation 06/20 - Every 15 minute safety checks (3) Anxiety 06/21 Given history of trauma and patient's recollection of "feelings" as a kid as well as "feelings after his 2nd marriage and of dtrs, this provider is less inclined to beleive he has Apserger's and possibly rather PTSD wtih psychological defense of shutting down to emotions. HIs present anxiety may be related to his nausea but cannot rule out that his defenses are coming down and that he is uncomfortable with his own emotions Given prior sensitivity to medications and needing to monitor bipolar I with lithium will not add medication for anxiety,but would consider strongly At a minimum he would benefit from ongoing therapy inpatient and outpatient Discharge / Aftercare Planning Primary Care Physician: Name: Dr. Gonzalez/ [facility] Therapist: Name: Senait, Therapist at [facility] Thursday at 9am Release Manager: Name: None Visit Code E&M Code: 38169 Inventory Assets Strengths: intelligent, supportive family, desire to get better Needs: limitations of emotion, need for stabilization Risk Factors Assessment Male: Yes : Yes /single/: No Health problems: No Substance use disorders: No Previous attempt: No Family history of suicide: No Previous psychiatric stay: No Hopelessness: No Smoker: No Protective Factors Assessment Temple beliefs: No : Yes Responsible for young children: Yes Employed: Yes Stable relationships: Yes Supportive family: Yes Data Vital Signs Last 24 Hrs: Date Time Temp Pulse Resp B/P (MAP) Pulse Ox O2 Delivery O2 Flow Rate FiO2 06/21/17 07:05 36.8 75 16 116/70 70 111/76 Meds Administered Last 24 Hrs: Meds Administered (Past 24Hrs) Medications (Trade) Dose Ordered Sig/Maricel Route Start Time Stop Time Status Last Admin Dose Admin Mckenna Carbonate (Lithobid Tab) 900 mg 1700,1900,2100 PO 06/20/17 17:00 06/20/17 22:00 DC 06/20/17 22:52 900 MG Ondansetron HCl (Zofran Tab) 4 mg ONE ONCE PO 06/21/17 03:30 06/21/17 03:31 DC 06/21/17 03:38 4 MG Lab Results Last 24 Hrs: Last 24 Hours Test 06/21/17 10:46 Mckenna Level 0.7 mMOL/L
[2017-06-21] MEDS: ONDANSETRON 4 MG TAB PO PRN (16:16)
[2017-06-21] MEDS: LITHIUM CARBONATE 450 MG TABCR PO SCH (21:38)
[2017-06-22 06:58] VITALS: BP_SYST 103; BP_SYST 113; BP_DIAS 65; BP_DIAS 74; PULSE 63; PULSE 79; TEMP 36.2
--- NOTE | 2017-06-22 13:56 | Psychiatric Progress Notes ---
Progress Note Date of Service Jun 22, 2017. Interval History Tylor Carrasquillo is a 36-year-old male admitted on Jun 19, 2017 at 16:26 who currently lives in [place] with his , 13-year-old step daughter, and twin 10 month old daughters. Tylor Carrasquillo was admitted on a 201 voluntary commitment. Patient is admitted from home. The patient was brought to the ED by his . Information provided by the patient is considered to be reliable. Chief Complaint "I don't know it this is how its supposed to work, but I feel amped.". Subjective Patient was seen & assessed interval progress reviewed with Treatment Team. The patient says that he is experiencing high energy, and racing thoughts, that he described as feeling "amped", more so than even on admission. He reviews his history of always feeling drivin, multiple jobs, very little sleep, hyperfocused. He denies ever experiencing depression. He continues with nausea , somewhat better than yesterday, and is forcing himself to heat. He also reports worsening of his baseline tinnitus "like my head's going to explode.". He describes feeling like he must always be doing something or he isn't a productive member of society, and "it kills me" to even think of slowing down. He asks for clarification of the purpose of the meds, and says he is willing to take anything we recommend if it will help to slow him down, which is a clear divergence from his usual attitude of never taking meds for any reason. He denies SI/HI, denies aud/vis hallucinations Review of Systems Constitutional: + problem reported (feels amped up) ENT: No hearing loss, No unusual epistaxis, No nasal symptoms, No sore throat, No tinnitus, No dental problems, No trouble swallowing, No problem reported Cardiovascular: No chest pain, No orthopnea, No PND, No edema, No claudication , No palpitations, No problem reported Abdomen: + nausea Musculoskeletal: No joint pain, No muscle pain, No swelling, No calf pain, No problem reported Neurologic: No memory loss, No paralysis, No weakness, No numbness/tingling, No vertigo, No balance problems, No problem reported Psychiatric: + problem reported (restless, elevated energy) Integumentary: No rash, No itch, No new/changing skin lesions, No color change , No bleeding, No problem reported Sleep Information Total Hours of Sleep: 6.50 Meal Information Percent of Breakfast Consumed: 100 Percent of Lunch Consumed: 75 Percent of Dinner Consumed: 100 Mental Status Exam During interview pt is: alert and oriented, cooperative Appearance: appropriately dressed, appropriately groomed Eye contact is: good Motor behavior is: no abnormal motor movements, psychomotor agitation ( restless bouncing leg entire visit) Speech: is pressured (rapid) Affect: anxious, other (smiling) Mood is: other ("amped up") Thought process: goal directed, clear, coherent, circumstantial Thought content: reality based without delusions Suicidal thought are: denied Homicidal thoughts are: denied Hallucinations: denies auditory, denies visual Cognition: memory grossly intact, attention grossly intact, language grossly intact Intelligence estimated to be: above average Insight: fair Judgement: fair Impression Appears activated, unable to sit still, racing thoughts and rapid speech. Was loaded with lithium and now on maintenance 900 mg HS until level. Agrees to add Risperdal 0.5 mg. HS and 0.5 mg. q4h prn as an antimanic. R/B/A reviewed and accepted including risk for TD. Plan (1) Bipolar I disorder with becky 06/20 - Pt to be started on Saluda loading this evening and will receive 900mg Lithobid at 1700, 1900, and 2100. Will evaluate lithium level tomorrow morning. - Family meeting encouraged with or other identified supports - Encourage participation in group therapy and activities - Coordination of care with outpatient providers. 06/21 - litihium trough level after loading 0.7, will schedule 900mg/hs, and provide prn zofran for nausea 06/22 - Start Risperdal 0.5 mg. HS and 0.5 mg. q4h prn (2) Suicidal ideation 06/20 - Every 15 minute safety checks (3) Anxiety 06/21 Given history of trauma and patient's recollection of "feelings" as a kid as well as "feelings after his 2nd marriage and of dtrs, this provider is less inclined to beleive he has Apserger's and possibly rather PTSD wtih psychological defense of shutting down to emotions. HIs present anxiety may be related to his nausea but cannot rule out that his defenses are coming down and that he is uncomfortable with his own emotions Given prior sensitivity to medications and needing to monitor bipolar I with lithium will not add medication for anxiety,but would consider strongly At a minimum he would benefit from ongoing therapy inpatient and outpatient Discharge / Aftercare Planning Primary Care Physician: Name: Dr. Gonzalez/ [facility] Therapist: Name: Senait, Therapist at [facility] Thursday at 9am Practice Director: Name: None Visit Code E&M Code: 84864 Inventory Assets Strengths: intelligent, supportive family, desire to get better Needs: limitations of emotion, need for stabilization Risk Factors Assessment Male: Yes : Yes /single/: No Health problems: No Substance use disorders: No Previous attempt: No Family history of suicide: No Previous psychiatric stay: No Hopelessness: No Smoker: No Protective Factors Assessment Anglican beliefs: No : Yes Responsible for young children: Yes Employed: Yes Stable relationships: Yes Supportive family: Yes Data Vital Signs Last 24 Hrs: Date Time Temp Pulse Resp B/P (MAP) Pulse Ox O2 Delivery O2 Flow Rate FiO2 06/22/17 06:58 36.2 63 16 103/65 79 113/74 Meds Administered Last 24 Hrs: Meds Administered (Past 24Hrs) Medications (Trade) Dose Ordered Sig/Maricel Route Start Time Stop Time Status Last Admin Dose Admin Saluda Carbonate (Lithobid Tab) 900 mg 1700,1900,2100 PO 06/20/17 17:00 06/20/17 22:00 DC 06/20/17 22:52 900 MG Ondansetron HCl (Zofran Tab) 4 mg ONE ONCE PO 06/21/17 03:30 06/21/17 03:31 DC 06/21/17 03:38 4 MG Saluda Carbonate (Eskalith Cr Tab) 900 mg HS PO 06/21/17 22:00 07/21/17 21:59 06/21/17 21:38 900 MG Ondansetron HCl (Zofran Tab) 4 mg Q4H PRN PO 06/21/17 15:30 07/21/17 15:29 06/21/17 16:16 4 MG Lab Results Last 24 Hrs: 06/19/17 12:42 Red Blood Count 4.84, Mean Corpuscular Volume 86.4, Mean Corpuscular Hemoglobin 30.8, Mean Corpuscular Hemoglobin Concent 35.6, Mean Platelet Volume 9.0, Neutrophils (%) (Auto) 48.9, Lymphocytes (%) (Auto) 41.3, Monocytes (%) (Auto) 8.1, Eosinophils (%) (Auto) 1.1, Basophils (%) (Auto) 0.4, Neutrophils # (Auto) 2.65, Lymphocytes # (Auto) 2.24, Monocytes # (Auto) 0.44, Eosinophils # (Auto) 0.06, Basophils # (Auto) 0.02 06/19/17 12:42 Test 06/19/17 12:42 06/19/17 13:10 06/21/17 10:46 White Blood Count 5.42 K/uL (4.8-10.8) Red Blood Count 4.84 M/uL (4.7-6.1) Hemoglobin 14.9 g/dL (14.0-18.0) Hematocrit 41.8 % (42-52) Mean Corpuscular Volume 86.4 fL (80-100) Mean Corpuscular Hemoglobin 30.8 pg (25-34) Mean Corpuscular Hemoglobin Concent 35.6 g/dl (32-36) Platelet Count 250 K/uL (130-400) Mean Platelet Volume 9.0 fL (7.4-10.4) Neutrophils (%) (Auto) 48.9 % Lymphocytes (%) (Auto) 41.3 % Monocytes (%) (Auto) 8.1 % Eosinophils (%) (Auto) 1.1 % Basophils (%) (Auto) 0.4 % Neutrophils # (Auto) 2.65 K/uL (1.4-6.5) Lymphocytes # (Auto) 2.24 K/uL (1.2-3.4) Monocytes # (Auto) 0.44 K/uL (0.11-0.59) Eosinophils # (Auto) 0.06 K/uL (0-0.5) Basophils # (Auto) 0.02 K/uL (0-0.2) RDW Standard Deviation 41.2 fL (36.4-46.3) RDW Coefficient of Variation 12.9 % (11.5-14.5) Immature Granulocyte % (Auto) 0.2 % Immature Granulocyte # (Auto) 0.01 K/uL (0.00-0.02) Anion Gap 5.0 mmol/L (3-11) Est Creatinine Clear Calc Drug Dose 121.7 ml/min Estimated GFR () 120.3 Estimated GFR (Non- 103.8 BUN/Creatinine Ratio 12.6 (10-20) Calcium Level 9.0 mg/dl (8.5-10.1) Total Bilirubin 0.5 mg/dl (0.2-1) Aspartate Amino Transf (AST/SGOT) 26 U/L (15-37) Alanine Aminotransferase (ALT/SGPT) 55 U/L (12-78) Alkaline Phosphatase 59 U/L (45-117) Total Protein 7.8 gm/dl (6.4-8.2) Albumin 4.1 gm/dl (3.4-5.0) Globulin 3.7 gm/dl (2.5-4.0) Albumin/Globulin Ratio 1.1 (0.9-2) Thyroid Stimulating Hormone (TSH) 0.933 uIu/ml (0.300-4.500) Salicylates Level < 1.7 mg/dl (2.8-20) Acetaminophen Level < 2 ug/ml (10-30) Ethyl Alcohol mg/dL < 3.0 mg/dl (0-3) Urine Color YELLOW Urine Appearance CLOUDY (CLEAR) Urine pH 6.5 (4.5-7.5) Urine Specific Eunice 1.025 (1.000-1.030) Urine Protein NEG (NEG) Urine Glucose (UA) NEG (NEG) Urine Ketones NEG (NEG) Urine Occult Blood NEG (NEG) Urine Nitrite NEG (NEG) Urine Bilirubin NEG (NEG) Urine Urobilinogen NEG (NEG) Urine Leukocyte Esterase NEG (NEG) Urine WBC (Auto) 1-5 /hpf (0-5) Urine RBC (Auto) 0-4 /hpf (0-4) Urine Hyaline Casts (Auto) 1-5 /lpf (0-5) Urine Epithelial Cells (Auto) 10-20 /lpf (0-5) Urine Bacteria (Auto) NEG (NEG) Urine Crystals CALCIUM OXALATE (NONE Urine Mucus PRESENT (NONE PRSENT) Urine Opiates Screen NEG (NEG) Urine Methadone, Qualitative NEG (NEG) Urine Barbiturates NEG (NEG) Urine Phencyclidine (PCP) Level NEG (NEG) Ur Amphetamine/Methamphetamine NEG (NEG) MDMA (Ecstasy) Screen NEG (NEG) Urine Benzodiazepines Screen NEG (NEG) Urine Cocaine Metabolite NEG (NEG) Urine Marijuana (THC) NEG (NEG) Saluda Level 0.7 mMOL/L (0.6-1.2)
[2017-06-22] MEDS ORDERED: RISPERIDONE 0.5 MG TAB PO PRN (14:00)
[2017-06-22] MEDS: LITHIUM CARBONATE 450 MG TABCR PO SCH (21:05)
[2017-06-22] MEDS ORDERED: RISPERIDONE 0.5 MG TAB PO SCH (22:00)
[2017-06-23 07:07] VITALS: BP_SYST 104; BP_SYST 114; BP_DIAS 65; BP_DIAS 70; PULSE 59; PULSE 75; TEMP 36.8
[2017-06-23] MEDS: ONDANSETRON 4 MG TAB PO PRN (10:05)
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
[2017-06-23] MEDS ORDERED: BENZTROPINE MESYLATE 1 MG TAB PO PRN (12:45)
[2017-06-23] MEDS ORDERED: RISPERIDONE 1 MG TAB PO ONE (12:45)
[2017-06-23] MEDS: LITHIUM CARBONATE 450 MG TABCR PO SCH (21:18)
[2017-06-23] MEDS: RISPERIDONE 2 MG TAB PO SCH (21:19)
[2017-06-24 07:02] VITALS: BP_SYST 104; BP_SYST 111; BP_DIAS 64; BP_DIAS 73; PULSE 64; PULSE 88; TEMP 36.8
[2017-06-24] MEDS: RISPERIDONE 2 MG TAB PO SCH ×2 (08:59→21:28)
--- NOTE | 2017-06-24 10:52 | Psychiatric Progress Notes ---
Progress Note Date of Service Jun 24, 2017. Interval History Tylor Carrasquillo is a 36-year-old male admitted on Jun 19, 2017 at 16:26 who currently lives in [place] with his , 13-year-old step daughter, and twin 10 month old daughters. Tylor Carrasquillo was admitted on a 201 voluntary commitment. Patient is admitted from home. The patient was brought to the ED by his . Chief Complaint "A little better". Subjective Patient was seen & assessed interval progress reviewed with Treatment Team. Staff report he has been restless, reporting high energy and difficulty calming down. His risperidone was increased to 2mg bid yesterday, and he thinks this is helping, but notes he didn't sleep well last night so is tired. He has been sleeping around 6 hours a night. He is exercising on the bike daily, and is eating although continues to have some nausea, which he feels is worse just after taking the lithium. He denies anxiety or worries. He feels he has been "manic and out of control most of my life, compulsive," and this has caused problems for him. He has been reading about different symptoms in his patient handbook, and is realizing he has been dealing with these things for years without knowing what they were. He says he tends to "work myself to " and neglect his family due to work. He says he needs to make a schedule, although he "hates schedules," but knows he needs to better structure his time. Sleep Information Total Hours of Sleep: 6.00 Meal Information Percent of Breakfast Consumed: 100 Percent of Lunch Consumed: 100 Percent of Dinner Consumed: 100 Mental Status Exam During interview pt is: alert and oriented, cooperative Appearance: appropriately dressed, other (wearing pajama pants and a T-shirt, unshaven) Eye contact is: fair Motor behavior is: steady gait & station, psychomotor agitation (restlessness, fidgeting) Speech: is pressured (rapid) Affect: anxious Mood is: other ("amped up") Thought process: circumstantial Thought content: reality based without delusions Suicidal thought are: denied Homicidal thoughts are: denied Hallucinations: denies auditory, denies visual Cognition: memory grossly intact, attention grossly intact, language grossly intact Intelligence estimated to be: above average Insight: fair Judgement: fair Impression Appears activated, unable to sit still, excessive energy, racing thoughts, and rapid speech continue. Could be having a paradoxical reaction, or conversely his level may not be high enough (scheduled for trough level tomorrow). Risperidone has been added to try to better control symptoms. Vital signs are stable, no evidence of tremor or signs of toxicity. Will check a lithium level tomorrow, to determine whether his lack of responses due to a subtherapeutic level. If it is therapeutic, it will likely need to be discontinued as it has not been effective. May benefit from psych testing and genetic testing as an outpatient to determine whether he is a fast were slow metabolizer. Plan (1) Bipolar I disorder with becky 06/20 - Pt to be started on [place] loading this evening and will receive 900mg Lithobid at 1700, 1900, and 2100. Will evaluate lithium level tomorrow morning. - Family meeting encouraged with or other identified supports - Encourage participation in group therapy and activities - Coordination of care with outpatient providers. 06/21 - lithium trough level after loading 0.7, will schedule 900mg/hs, and provide prn zofran for nausea 06/22 - Start Risperdal 0.5 mg. HS and 0.5 mg. q4h prn 06/23 - Increase Risperdal to 2 mg twice a day - Continue current dose of lithium with lithium level on 06/25 - If presentation continues consider DC of lithium, after which he describes feeling amped up 06/24 - Continue risperidone 2 mg twice a day, will need fasting labs if he is going to continue on this medication. - Check lithium trough level tomorrow; if subtherapeutic may need to increase dose, but if in the therapeutic range, and will likely need to be discontinued as he has not responded. - Patient is going to work on a schedule to better structure his time at home and trying to balance between work and family time. He is attending groups and benefiting from programming here. (2) Suicidal ideation 06/20 - Every 15 minute safety checks (3) Anxiety 06/21 Given history of trauma and patient's recollection of "feelings" as a kid as well as "feelings after his 2nd marriage and of dtrs, this provider is less inclined to beleive he has Apserger's and possibly rather PTSD wtih psychological defense of shutting down to emotions. HIs present anxiety may be related to his nausea but cannot rule out that his defenses are coming down and that he is uncomfortable with his own emotions Given prior sensitivity to medications and needing to monitor bipolar I with lithium will not add medication for anxiety,but would consider strongly At a minimum he would benefit from ongoing therapy inpatient and outpatient Discharge / Aftercare Planning Primary Care Physician: Name: Ophelia Ureña Date of Appointment: Jul 01, 2017 Time of Appointment: 9:05 Psychiatrist: Name: Alisia Ramos PA-C Date of Appointment: Jun 29, 2017 Time of Appointment: 10:20 Therapist: Name: Senait Therapist at [facility] Thursday at 9am Date of Appointment: Jun 29, 2017 Time of Appointment: 9am Saw Feeder: Name: None Visit Code E&M Code: 03516 Inventory Assets Strengths: intelligent, supportive family, desire to get better Needs: limitations of emotion, need for stabilization Risk Factors Assessment Male: Yes : Yes /single/: No Health problems: No Substance use disorders: No Previous attempt: No Family history of suicide: No Previous psychiatric stay: No Hopelessness: No Smoker: No Protective Factors Assessment Christian beliefs: No : Yes Responsible for young children: Yes Employed: Yes Stable relationships: Yes Supportive family: Yes Data Vital Signs Last 24 Hrs: Date Time Temp Pulse Resp B/P (MAP) Pulse Ox O2 Delivery O2 Flow Rate FiO2 06/24/17 07:02 36.8 64 16 104/64 88 111/73 Meds Administered Last 24 Hrs: Meds Administered (Past 24Hrs) Medications (Trade) Dose Ordered Sig/Maricel Route Start Time Stop Time Status Last Admin Dose Admin Risperidone (Risperdal Tab) 0.5 mg HS PO 06/22/17 22:00 06/23/17 12:33 DC 06/22/17 21:04 0.5 MG Risperidone (Risperdal Tab) 0.5 mg Q4H PRN PO 06/22/17 14:00 07/22/17 13:59 06/23/17 10:05 0.5 MG Risperidone (Risperdal Tab) 2 mg BID PO 06/23/17 22:00 07/23/17 21:59 06/24/17 08:59 2 MG Risperidone (Risperdal Tab) 1 mg 1245 ONCE PO 06/23/17 12:45 06/23/17 12:46 DC 06/23/17 13:05 1 MG
[2017-06-24] MEDS: LITHIUM CARBONATE 450 MG TABCR PO SCH (21:28)
[2017-06-25 07:03] VITALS: BP_SYST 109; BP_SYST 117; BP_DIAS 67; BP_DIAS 76; PULSE 57; PULSE 69; TEMP 36.3
[2017-06-25] MEDS: RISPERIDONE 2 MG TAB PO SCH ×2 (09:28→21:13)
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
--- NOTE | 2017-06-25 10:33 | Psychiatric Progress Notes ---
Progress Note Date of Service Jun 25, 2017. Interval History Tylor Carrasquillo is a 36-year-old male admitted on Jun 19, 2017 at 16:26 who currently lives in [place] with his , 13-year-old step daughter, and twin 10 month old daughters. Tylor Carrasquillo was admitted on a 201 voluntary commitment. Patient is admitted from home. The patient was brought to the ED by his . Chief Complaint "Something's working". Subjective Patient was seen & assessed interval progress reviewed with Treatment Team. The patient says that he thinks the meds are finally working. He is focusing better, and feeling more slowed. His visited last evening and he reports that she was surprised by how "normal" he was. He was able to maintain eye contact longer and was more linear in his conversation. He reports disturbed sleep, waking with an aching pain in his lt arm at the sight of his surgery to remove a 2 in nail. He feels the need to stretch and move his forearm. He has had pain consistently since the surgery, but feels its worse since starting on meds. He is glad that meds are starting to work, but expects that he will always be more amped up than other people. His mood is good, denying sadness or SI. He also reports restlessness. Review of Systems Constitutional: No fever, No chills, No sweats, No weight loss, No weakness, No fatigue, No problem reported ENT: No hearing loss, No unusual epistaxis, No nasal symptoms, No sore throat, No tinnitus, No dental problems, No trouble swallowing, No problem reported Respiratory: No cough, No sputum, No wheezing, No shortness of breath, No dyspnea on exertion, No dyspnea at rest, No hemoptysis, No problem reported Cardiovascular: No chest pain, No orthopnea, No PND, No edema, No claudication , No palpitations, No problem reported Abdomen: No pain, No nausea, No vomiting, No diarrhea, No constipation, No GI bleeding, No problem reported Musculoskeletal: + problem reported (left forearm pain) Neurologic: No memory loss, No paralysis, No weakness, No numbness/tingling, No vertigo, No balance problems, No problem reported Psychiatric: + insomnia Integumentary: No rash, No itch, No new/changing skin lesions, No color change , No bleeding, No problem reported Sleep Information Total Hours of Sleep: 6.00 Meal Information Percent of Breakfast Consumed: 100 Percent of Lunch Consumed: 100 Percent of Dinner Consumed: 100 Mental Status Exam During interview pt is: alert and oriented, cooperative Appearance: appropriately dressed, other (wearing pajama pants and a T-shirt, unshaven) Eye contact is: fair Motor behavior is: steady gait & station, psychomotor agitation (restlessness, fidgeting) Speech: is pressured (rapid) Affect: anxious Mood is: other ("amped up") Thought process: circumstantial Thought content: reality based without delusions Suicidal thought are: denied Homicidal thoughts are: denied Hallucinations: denies auditory, denies visual Cognition: memory grossly intact, attention grossly intact, language grossly intact Intelligence estimated to be: above average Insight: fair Judgement: fair Impression Calmer today, speech of more normal pace. Family observing positive changes. Will have trough lithium level this PM. Will continue with current Risperdal dose and have encouraged the patient to use the prn at any time he feels that he is activated. Will trial single dose Artane 5 mg. in the event his restlessness is akathisia and not a hypomanic symptoms. Plan (1) Bipolar I disorder with becky 06/20 - Pt to be started on [place] loading this evening and will receive 900mg Lithobid at 1700, 1900, and 2100. Will evaluate lithium level tomorrow morning. - Family meeting encouraged with or other identified supports - Encourage participation in group therapy and activities - Coordination of care with outpatient providers. 06/21 - lithium trough level after loading 0.7, will schedule 900mg/hs, and provide prn zofran for nausea 06/22 - Start Risperdal 0.5 mg. HS and 0.5 mg. q4h prn 06/23 - Increase Risperdal to 2 mg twice a day - Continue current dose of lithium with lithium level on 06/25 - If presentation continues consider DC of lithium, after which he describes feeling amped up 06/24 - Continue risperidone 2 mg twice a day, will need fasting labs if he is going to continue on this medication. - Check lithium trough level tomorrow; if subtherapeutic may need to increase dose, but if in the therapeutic range, and will likely need to be discontinued as he has not responded. - Patient is going to work on a schedule to better structure his time at home and trying to balance between work and family time. He is attending groups and benefiting from programming here. 06/25 - Continue current meds, and encourage use of prn if feeling activated - Will trial Artane 5 mg. now to rule out akathisia (2) Suicidal ideation 06/20 - Every 15 minute safety checks (3) Anxiety 06/21 Given history of trauma and patient's recollection of "feelings" as a kid as well as "feelings after his 2nd marriage and of dtrs, this provider is less inclined to beleive he has Apserger's and possibly rather PTSD wtih psychological defense of shutting down to emotions. HIs present anxiety may be related to his nausea but cannot rule out that his defenses are coming down and that he is uncomfortable with his own emotions Given prior sensitivity to medications and needing to monitor bipolar I with lithium will not add medication for anxiety,but would consider strongly At a minimum he would benefit from ongoing therapy inpatient and outpatient Discharge / Aftercare Planning [facility] Phys[facility]: [facility] Date of Appointment: Jul 01, 2017 Time of Appointment: 9:05 Psychiatrist: Name: Alisia Ramos PA-C Date of Appointment: Jun 29, 2017 Time of Appointment: 10:20 Therapist: Name: Senait Therapist at [place] [facility] Thursday at 9am Date of Appointment: Jun 29, 2017 Time of Appointment: 9am Concrete Pavement Installer: Name: None Visit Code E&M Code: 89820 Inventory Assets Strengths: intelligent, supportive family, desire to get better Needs: limitations of emotion, need for stabilization Risk Factors Assessment Male: Yes : Yes /single/: No Health problems: No Substance use disorders: No Previous attempt: No Family history of suicide: No Previous psychiatric stay: No Hopelessness: No Smoker: No Protective Factors Assessment Scientology beliefs: No : Yes Responsible for young children: Yes Employed: Yes Stable relationships: Yes Supportive family: Yes Data Vital Signs Last 24 Hrs: Date Time Temp Pulse Resp B/P (MAP) Pulse Ox O2 Delivery O2 Flow Rate FiO2 06/25/17 07:03 36.3 57 16 109/67 69 117/76 Meds Administered Last 24 Hrs: Meds Administered (Past 24Hrs) Medications (Trade) Dose Ordered Sig/Maricel Route Start Time Stop Time Status Last Admin Dose Admin Risperidone (Risperdal Tab) 2 mg BID PO 06/23/17 22:00 07/23/17 21:59 06/25/17 09:28 2 MG Risperidone (Risperdal Tab) 1 mg 1245 ONCE PO 06/23/17 12:45 06/23/17 12:46 DC 06/23/17 13:05 1 MG Lab Results Last 24 Hrs: 06/19/17 12:42 Red Blood Count 4.84, Mean Corpuscular Volume 86.4, Mean Corpuscular Hemoglobin 30.8, Mean Corpuscular Hemoglobin Concent 35.6, Mean Platelet Volume 9.0, Neutrophils (%) (Auto) 48.9, Lymphocytes (%) (Auto) 41.3, Monocytes (%) (Auto) 8.1, Eosinophils (%) (Auto) 1.1, Basophils (%) (Auto) 0.4, Neutrophils # (Auto) 2.65, Lymphocytes # (Auto) 2.24, Monocytes # (Auto) 0.44, Eosinophils # (Auto) 0.06, Basophils # (Auto) 0.02 06/19/17 12:42 Test 06/19/17 12:42 06/19/17 13:10 06/21/17 10:46 White Blood Count 5.42 K/uL (4.8-10.8) Red Blood Count 4.84 M/uL (4.7-6.1) Hemoglobin 14.9 g/dL (14.0-18.0) Hematocrit 41.8 % (42-52) Mean Corpuscular Volume 86.4 fL (80-100) Mean Corpuscular Hemoglobin 30.8 pg (25-34) Mean Corpuscular Hemoglobin Concent 35.6 g/dl (32-36) Platelet Count 250 K/uL (130-400) Mean Platelet Volume 9.0 fL (7.4-10.4) Neutrophils (%) (Auto) 48.9 % Lymphocytes (%) (Auto) 41.3 % Monocytes (%) (Auto) 8.1 % Eosinophils (%) (Auto) 1.1 % Basophils (%) (Auto) 0.4 % Neutrophils # (Auto) 2.65 K/uL (1.4-6.5) Lymphocytes # (Auto) 2.24 K/uL (1.2-3.4) Monocytes # (Auto) 0.44 K/uL (0.11-0.59) Eosinophils # (Auto) 0.06 K/uL (0-0.5) Basophils # (Auto) 0.02 K/uL (0-0.2) RDW Standard Deviation 41.2 fL (36.4-46.3) RDW Coefficient of Variation 12.9 % (11.5-14.5) Immature Granulocyte % (Auto) 0.2 % Immature Granulocyte # (Auto) 0.01 K/uL (0.00-0.02) Anion Gap 5.0 mmol/L (3-11) Est Creatinine Clear Calc Drug Dose 121.7 ml/min Estimated GFR () 120.3 Estimated GFR (Non- 103.8 BUN/Creatinine Ratio 12.6 (10-20) Calcium Level 9.0 mg/dl (8.5-10.1) Total Bilirubin 0.5 mg/dl (0.2-1) Aspartate Amino Transf (AST/SGOT) 26 U/L (15-37) Alanine Aminotransferase (ALT/SGPT) 55 U/L (12-78) Alkaline Phosphatase 59 U/L (45-117) Total Protein 7.8 gm/dl (6.4-8.2) Albumin 4.1 gm/dl (3.4-5.0) Globulin 3.7 gm/dl (2.5-4.0) Albumin/Globulin Ratio 1.1 (0.9-2) Thyroid Stimulating Hormone (TSH) 0.933 uIu/ml (0.300-4.500) Salicylates Level < 1.7 mg/dl (2.8-20) Acetaminophen Level < 2 ug/ml (10-30) Ethyl Alcohol mg/dL < 3.0 mg/dl (0-3) Urine Color YELLOW Urine Appearance CLOUDY (CLEAR) Urine pH 6.5 (4.5-7.5) Urine Specific [place] 1.025 (1.000-1.030) Urine Protein NEG (NEG) Urine Glucose (UA) NEG (NEG) Urine Ketones NEG (NEG) Urine Occult Blood NEG (NEG) Urine Nitrite NEG (NEG) Urine Bilirubin NEG (NEG) Urine Urobilinogen NEG (NEG) Urine Leukocyte Esterase NEG (NEG) Urine WBC (Auto) 1-5 /hpf (0-5) Urine RBC (Auto) 0-4 /hpf (0-4) Urine Hyaline Casts (Auto) 1-5 /lpf (0-5) Urine Epithelial Cells (Auto) 10-20 /lpf (0-5) Urine Bacteria (Auto) NEG (NEG) Urine Crystals CALCIUM OXALATE (NONE Urine Mucus PRESENT (NONE PRSENT) Urine Synthetic Stimulants see note Urine Opiates Screen NEG (NEG) Urine Methadone, Qualitative NEG (NEG) Urine Barbiturates NEG (NEG) Urine Phencyclidine (PCP) Level NEG (NEG) Ur Amphetamine/Methamphetamine NEG (NEG) MDMA (Ecstasy) Screen NEG (NEG) Urine Benzodiazepines Screen NEG (NEG) Urine Cocaine Metabolite NEG (NEG) Cannabinoids Comment see note Urine Synthetic Cannabinoids NEGATIVE (Negative) Ur Synthetic Cannabinoids Confirm (()) Urine Marijuana (THC) NEG (NEG) [place] Level 0.7 mMOL/L (0.6-1.2)
[2017-06-25] MEDS ORDERED: TRIHEXYPHENIDYL HCL 2 MG TAB PO ONE (11:00)
[2017-06-25 12:19] VITALS: BP 111/72; PULSE 63; TEMP 36.3
[2017-06-25] MEDS: TRIHEXYPHENIDYL HCL 2 MG TAB PO SCH (21:14)
[2017-06-25] MEDS: LITHIUM CARBONATE 450 MG TABCR PO SCH (21:14)
[2017-06-26 07:06] VITALS: BP_SYST 114; BP_SYST 123; BP_DIAS 68; BP_DIAS 78; PULSE 56; PULSE 72; TEMP 36.6
[2017-06-26] MEDS: RISPERIDONE 2 MG TAB PO SCH ×2 (08:45→21:30)
[2017-06-26] MEDS: TRIHEXYPHENIDYL HCL 2 MG TAB PO SCH ×3 (08:45→21:30)
--- NOTE | 2017-06-26 10:40 | Psych Management Progress Note ---
Psychiatry Miscellaneous Date of Service: Jun 26, 2017. Patient seen, MS assessed. Rates mood as 9/10 and "hopeful". Encouraged cooperation with care and treatment plan as outlined by allied health prescriber.
--- NOTE | 2017-06-26 13:03 | Psychiatric Progress Notes ---
Progress Note Date of Service Jun 26, 2017. Interval History Tylor Carrasquillo is a 36-year-old male admitted on Jun 19, 2017 at 16:26 who currently lives in [place] with his , 13-year-old step daughter, and twin 10 month old daughters. Tylor Carrasquillo was admitted on a 201 voluntary commitment. Patient is admitted from home. The patient was brought to the ED by his . Chief Complaint "I'm excited that I feel the medicine working". Subjective Patient was seen & assessed interval progress reviewed with Treatment Team. Staff discussed improvement in the patient. Reported he rated himself a "9 and happy" last evening. Pt continues to report nausea. Aftercare in place with providers at [facility]. Pt was seen today to assess progress since admission. Pt states he has noticed he has "slowed down". Upon further questioning, pt states he realizes that was something he needed and that he and his have noticed a difference. Pt states he noticed more improvement with the addition of Risperdal, and reports less muscle fatigue with the addition of Artane. Pt states he has noticed an ability to think more thoroughly and he finds himself able to separate from activities and tasks much easier than before. Pt reports ongoing mild nausea in the evening, but states it is tolerable. He denies SI/HI , A/V hallucinations, and other psychosis. Review of Systems Psych: denies symptoms other than stated above Constitutional: denied Cardiovascular: denied GI: mild nausea Neurologic: denied Musculoskeletal: intermittent muscle fatigue Remainder of 10 body systems also reviewed and denied other than noted above. Sleep Information Total Hours of Sleep: 6.00 Meal Information Percent of Breakfast Consumed: 50 Percent of Lunch Consumed: 100 Percent of Dinner Consumed: 100 Mental Status Exam During interview pt is: alert and oriented, cooperative Appearance: appropriately dressed, appropriately groomed Eye contact is: good Motor behavior is: steady gait & station Speech: is pressured (less rapid) Affect: euthymic Mood is: other ("happy") Thought process: goal directed, clear, coherent Thought content: reality based without delusions Suicidal thought are: denied Homicidal thoughts are: denied Hallucinations: denies auditory, denies visual Cognition: memory grossly intact, attention grossly intact, language grossly intact Intelligence estimated to be: above average Insight: fair Judgement: fair Impression Pt continues to show improvement in restlessness and rate of speech. He reports both he and his have noticed these improvements, something he states he needed. He continues to report nausea with lithium, but states it is mild and manageable. Will have lithium level drawn tomorrow morning to assess AM level, has he was subtherapeutic at last level drawn. Depending on that result, will consider increasing maintenance dose of [place] to 1200mg. Pt tolerating Risperdal well, states he has been benefiting from BID Artane 2mg for muscle fatigue. Concerned about ongoing stiffness despite BID dosing. Will increase to TID while on unit and evaluate response. Requires ongoing inpatient mental health treatment as we determine maintenance dosing for lithium , other medication changes, and safe discharge plan. Plan (1) Bipolar I disorder with becky 06/20 - Pt to be started on [place] loading this evening and will receive 900mg Lithobid at 1700, 1900, and 2100. Will evaluate lithium level tomorrow morning. - Family meeting encouraged with or other identified supports - Encourage participation in group therapy and activities - Coordination of care with outpatient providers. 06/21 - lithium trough level after loading 0.7, will schedule 900mg/hs, and provide prn zofran for nausea 06/22 - Start Risperdal 0.5 mg. HS and 0.5 mg. q4h prn 06/23 - Increase Risperdal to 2 mg twice a day - Continue current dose of lithium with lithium level on 06/25 - If presentation continues consider DC of lithium, after which he describes feeling amped up 06/24 - Continue risperidone 2 mg twice a day, will need fasting labs if he is going to continue on this medication. - Check lithium trough level tomorrow; if subtherapeutic may need to increase dose, but if in the therapeutic range, and will likely need to be discontinued as he has not responded. - Patient is going to work on a schedule to better structure his time at home and trying to balance between work and family time. He is attending groups and benefiting from programming here. 06/25 - Continue current meds, and encourage use of prn if feeling activated - Will trial Artane 5 mg. now to rule out akathisia 06/26 - Continue [place] 900mg qHS. Will have lithium level drawn tomorrow AM and determine need for increased dosage when results are received. - Artane 2mg TID ordered. Pt benefited from BID dosing, but was having breakthrough muscle stiffness. Will try to target with TID dose as patient would prefer to not have to request medications. (2) Suicidal ideation 06/20 - Every 15 minute safety checks (3) Anxiety 06/21 Given history of trauma and patient's recollection of "feelings" as a kid as well as "feelings after his 2nd marriage and of dtrs, this provider is less inclined to beleive he has Apserger's and possibly rather PTSD wtih psychological defense of shutting down to emotions. HIs present anxiety may be related to his nausea but cannot rule out that his defenses are coming down and that he is uncomfortable with his own emotions Given prior sensitivity to medications and needing to monitor bipolar I with lithium will not add medication for anxiety,but would consider strongly At a minimum he would benefit from ongoing therapy inpatient and outpatient Discharge / Aftercare Planning Primary Care Physician: [facility] Date of Appointment: Jul 01, 2017 Time of Appointment: 9:05 Psychiatrist: Name: Alisia Ramos PA-C Date of Appointment: Jun 29, 2017 Time of Appointment: 10:20 Therapist: Name: Senait Therapist at [facility] Thursday at 9am Date of Appointment: Jun 29, 2017 Time of Appointment: 9am Director Organizational: Name: None Visit Code E&M Code: 46509 Inventory Assets Strengths: intelligent, supportive family, desire to get better Needs: limitations of emotion, need for stabilization Risk Factors Assessment Male: Yes : Yes /single/: No Health problems: No Substance use disorders: No Previous attempt: No Family history of suicide: No Previous psychiatric stay: No Hopelessness: No Smoker: No Protective Factors Assessment Nondenominational beliefs: No : Yes Responsible for young children: Yes Employed: Yes Stable relationships: Yes Supportive family: Yes Data Vital Signs Last 24 Hrs: Date Time Temp Pulse Resp B/P (MAP) Pulse Ox O2 Delivery O2 Flow Rate FiO2 06/26/17 07:06 36.6 56 16 114/68 72 123/78 Meds Administered Last 24 Hrs: Meds Administered (Past 24Hrs) Medications (Trade) Dose Ordered Sig/Maricel Route Start Time Stop Time Status Last Admin Dose Admin Trihexyphenidyl HCl (Artane Tab) 5 mg ONE ONCE PO 06/25/17 11:00 06/25/17 11:01 DC 06/25/17 11:10 5 MG Trihexyphenidyl HCl (Artane Tab) 2 mg BID PO 06/25/17 22:00 06/26/17 11:40 DC 06/26/17 08:45 2 MG Lab Results Last 24 Hrs: Last 24 Hours Test 06/25/17 19:57 [place] Level 0.4 mMOL/L
[2017-06-26] MEDS: LITHIUM CARBONATE 450 MG TABCR PO SCH (21:30)
[2017-06-27 06:55] VITALS: BP_SYST 108; BP_SYST 117; BP_DIAS 66; BP_DIAS 73; PULSE 60; PULSE 79; TEMP 36.6
[2017-06-27] MEDS: TRIHEXYPHENIDYL HCL 2 MG TAB PO SCH ×3 (08:21→22:20)
[2017-06-27] MEDS: RISPERIDONE 2 MG TAB PO SCH ×2 (08:22→22:20)
--- NOTE | 2017-06-27 13:58 | Psychiatric Progress Notes ---
Progress Note Date of Service Jun 27, 2017. Interval History Tylor Carrasquillo is a 36-year-old male admitted on Jun 19, 2017 at 16:26 who currently lives in [place] with his , 13-year-old step daughter, and twin 10 month old daughters. Tylor Carrasquillo was admitted on a 201 voluntary commitment. Patient is admitted from home. The patient was brought to the ED by his . Chief Complaint "I'm still doing good". Subjective Patient was seen & assessed interval progress reviewed with Nursing. Pt was seen to assess progress since admission. He continues to report feeling "slowed " which he states is good because it allows him to think more clearly. He reports mild nausea with the lithium, and was in low-therapeutic rang this morning when lithium levels were drawn. Pt states he has noticed a great benefit from the Risperdal and the Artane throughout the day. He reports ongoing muscle fatigue which is bothersome in the evening, but feels the Artane TID has been helpful with this during the day. Pt denies SI/HI, A/V hallucinations, and other psychosis. Review of Systems Psych: denies symptoms other than stated above Constitutional: denied Cardiovascular: denied GI: reports mild nausea, worse in morning Neurologic: denied Musculoskeletal: reports mild muscle fatigue Remainder of 10 body systems also reviewed and denied other than noted above. Sleep Information Total Hours of Sleep: 6.25 Meal Information Percent of Breakfast Consumed: 100 Percent of Lunch Consumed: 100 Percent of Dinner Consumed: 100 Mental Status Exam During interview pt is: alert and oriented, cooperative Appearance: appropriately dressed (t-shirt and jeans), appropriately groomed Eye contact is: good Motor behavior is: steady gait & station, no abnormal motor movements Speech: normal in rate, rhythm & volume Affect: euthymic Mood is: other ("good") Thought process: goal directed, linear, logical, clear, coherent Thought content: reality based without delusions Suicidal thought are: denied Homicidal thoughts are: denied Hallucinations: denies auditory, denies visual Cognition: memory grossly intact, attention grossly intact, language grossly intact Intelligence estimated to be: above average Insight: fair Judgement: fair Impression Pt improving in regards to restlessness and rapid speech. Pt continues to report nausea with lithium. Labs this morning show low-therapeutic lithium level of 0.7. Due to nausea, will plan to maintain dosing of lithium at this time and allow for adjustments on an outpatient basis as necessary. As etiology of patient's symptoms is still rather uncertain, a maintenance mood stabilizer is likely beneficial to prevent fluctuations in mood in the future. Will continue on [place] 900mg qHS. Plan to continue Risperdal and Artane as well as patient has noticed benefit from these medications specifically. Pt informed that if progress remains stable, he is likely for discharge tomorrow morning. Plan (1) Bipolar I disorder with becky 06/20 - Pt to be started on [place] loading this evening and will receive 900mg Lithobid at 1700, 1900, and 2100. Will evaluate lithium level tomorrow morning. - Family meeting encouraged with or other identified supports - Encourage participation in group therapy and activities - Coordination of care with outpatient providers. 06/21 - lithium trough level after loading 0.7, will schedule 900mg/hs, and provide prn zofran for nausea 06/22 - Start Risperdal 0.5 mg. HS and 0.5 mg. q4h prn 06/23 - Increase Risperdal to 2 mg twice a day - Continue current dose of lithium with lithium level on 06/25 - If presentation continues consider DC of lithium, after which he describes feeling amped up 06/24 - Continue risperidone 2 mg twice a day, will need fasting labs if he is going to continue on this medication. - Check lithium trough level tomorrow; if subtherapeutic may need to increase dose, but if in the therapeutic range, and will likely need to be discontinued as he has not responded. - Patient is going to work on a schedule to better structure his time at home and trying to balance between work and family time. He is attending groups and benefiting from programming here. 06/25 - Continue current meds, and encourage use of prn if feeling activated - Will trial Artane 5 mg. now to rule out akathisia 06/26 - Continue [place] 900mg qHS. Will have lithium level drawn tomorrow AM and determine need for increased dosage when results are received. - Artane 2mg TID ordered. Pt benefited from BID dosing, but was having breakthrough muscle stiffness. Will try to target with TID dose as patient would prefer to not have to request medications. 06/27 - Continue [place] 900mg qHS. [place] level 0.7 this am, showing low- therapeutic level. Due to ongoing nausea, will not increase at this time. - Stability reported with Risperdal and Artane. Continue as above. - Likely for discharge tomorrow AM if remains stable. (2) Suicidal ideation 06/20 - Every 15 minute safety checks (3) Anxiety 06/21 Given history of trauma and patient's recollection of "feelings" as a kid as well as "feelings after his 2nd marriage and of dtrs, this provider is less inclined to beleive he has Apserger's and possibly rather PTSD wtih psychological defense of shutting down to emotions. HIs present anxiety may be related to his nausea but cannot rule out that his defenses are coming down and that he is uncomfortable with his own emotions Given prior sensitivity to medications and needing to monitor bipolar I with lithium will not add medication for anxiety,but would consider strongly At a minimum he would benefit from ongoing therapy inpatient and outpatient Discharge / Aftercare Planning Primary Care Physician: Name: Ophelia Ureña Date of Appointment: Jul 01, 2017 Time of Appointment: 9:05 Psychiatrist: Name: Alisia Ramos PA-C Date of Appointment: Jun 29, 2017 Time of Appointment: 10:20 Therapist: Name: Senait Therapist at [facility] Thursday at 9am Date of Appointment: Jun 29, 2017 Time of Appointment: 9am Alligator Shear Operator: Name: None Visit Code E&M Code: 81809 Inventory Assets Strengths: intelligent, supportive family, desire to get better Needs: limitations of emotion, need for stabilization Risk Factors Assessment Male: Yes : Yes /single/: No Health problems: No Substance use disorders: No Previous attempt: No Family history of suicide: No Previous psychiatric stay: No Hopelessness: No Smoker: No Protective Factors Assessment Oriental Orthodox beliefs: No : Yes Responsible for young children: Yes Employed: Yes Stable relationships: Yes Supportive family: Yes Data Vital Signs Last 24 Hrs: Date Time Temp Pulse Resp B/P (MAP) Pulse Ox O2 Delivery O2 Flow Rate FiO2 06/27/17 06:55 36.6 60 18 108/66 79 117/73 Meds Administered Last 24 Hrs: Meds Administered (Past 24Hrs) Medications (Trade) Dose Ordered Sig/Maricel Route Start Time Stop Time Status Last Admin Dose Admin Trihexyphenidyl HCl (Artane Tab) 2 mg BID PO 06/25/17 22:00 06/26/17 11:40 DC 06/26/17 08:45 2 MG Trihexyphenidyl HCl (Artane Tab) 2 mg TID PO 06/26/17 14:00 07/25/17 21:59 06/27/17 08:21 2 MG Lab Results Last 24 Hrs: Last 24 Hours Test 06/27/17 08:00 [place] Level 0.7 mMOL/L
[2017-06-27] MEDS: LITHIUM CARBONATE 450 MG TABCR PO SCH (22:20)
[2017-06-28 06:47] VITALS: BP_SYST 110; BP_SYST 121; BP_DIAS 64; BP_DIAS 80; PULSE 74; PULSE 76; TEMP 36.5
[2017-06-28] MEDS ORDERED: ZFR4 PO (08:07)
[2017-06-28] MEDS ORDERED: RSP2 PO (08:07)
[2017-06-28] MEDS ORDERED: LTHSR450 PO (08:07)
[2017-06-28] MEDS ORDERED: TRIH2TAB3 PO (08:07)
--- NOTE | 2017-06-28 08:18 | Discharge Instructions ---
Discharge Information Report Includes Report will include the: Discharge Instructions & Summary Admission Admission Date / Time: Jun 19, 2017 at 16:26 Reason for Admission: Mood Disorder Nos Discharge Discharge Diagnosis / Problem: Bipolar disorder, manic Condition at Discharge: Good Discharge Goals Goal(s): Decrease discomfort, Improve disease control, Learn about illness Activity Recommendations Activity Limitations: resume your previous activity . Instructions / Follow-Up Instructions / Follow-Up . SPECIAL CARE INSTRUCTIONS: 1. Follow through with your scheduled aftercare appointments. If unable to keep an appointment, please call to reschedule. 2. Take your medication only as prescribed. Medication should not be changed or stopped without the approval of your doctor. In the event of worsening symptoms or concerns about side effects, contact your doctor immediately. 3. Utilize new healthy coping skills, anger management skills, and stress management skills learned during your hospitalization. Journal feelings and process them with a support person. Identify stressors or situations that may result in relapse, deterioration or inappropriate behaviors and develop a plan to deal with those issues. 4. If your coping skills are ineffective and you are in crisis, contact your outpatient providers for direction. If unable to reach your providers, please call the CAN HELP LINE AT or go to the closest Emergency Room. 5. Avoid alcohol and un-prescribed drugs. 6. You have been provided with the Mental Health Advance Directives Pamphlet for your review. AFTERCARE APPOINTMENTS: * Please call your insurance company prior to your scheduled appointment to confirm your aftercare providers are covered. Take your insurance information to your appointments. . Discharge / Aftercare Planning Primary Care Physician: Name: Ophelia Ureña Date of Appointment: Jul 01, 2017 Time of Appointment: 9:05 Psychiatrist: Name: Alisia Ramos PA-C Date of Appointment: Jun 29, 2017 Time of Appointment: 10:20 Appointment Notes: you had recommended neuro psych testing in your 2016 progress note Therapist: Name Of Therapist: Vipul Sapp at [facility] Thursday at 9am Date of Appointment: Jun 29, 2017 Time of Appointment: 9am Cost Report Clerk: Name: None . Follow-Up Care Plan for Follow-Up Care: The patient will have psychiatric follow up on Thursday 06/29 Current Hospital Diet Patient's current hospital diet: Regular Diet Discharge Diet Recommended Diet: Regular Diet Procedures Procedures Performed: No Pending Studies Pending Studies at Discharge: No Medical Emergencies . Who to Call and When: Medical Emergencies: For questions or emergencies related to your hospital stay, please contact the Inpatient Behavioral Health Unit at [phone]. A pharmacology teacher is on-call 22/12 for the Behavioral Health Unit for emergencies At any time you feel your situation is an emergency, you may also call 911 immediately. . Non-Emergent Contact Non-Emergency issues call your: Psychiatrist, Therapist Advance Directives Existing Advance Directive: No Do You Have an Existing Mental: No Existing Living Will: No Existing Power of Document Specialist: No Advance Directives Info Given: To Pt/S.O. Advance Directives Reason: Declines as Mental Health Visit. Discharge Summary Admission HPI Per the Admitting provider: Again today, the patient says that he is feeling slower on risperdal. His and kids visited last evening and she commented on his condition, that he was slower, more "normal", able to maintain eye contact and conversation for longer periods of time. His mood remains good, with sadness or SI. He says that he has and always be someone who is more amped up than others, but hopes the meds help him to slow down. He is reporting an aching pain in his left forearm, at the sight of a previous surgery to remove a nail. It has caused him pain since the procedure, but since being on meds, he feels that it is worse, especially at night. It wakes him and he feels like he has to stretch it and move it. He also reports some restlessness. He is still reporting some nausea but has not needed zofran since 06/23 Hospital Course (1) Bipolar I disorder with becky 06/20 - Pt to be started on [place] loading this evening and will receive 900mg Lithobid at 1700, 1900, and 2100. Will evaluate lithium level tomorrow morning. - Family meeting encouraged with or other identified supports - Encourage participation in group therapy and activities - Coordination of care with outpatient providers. 06/21 - lithium trough level after loading 0.7, will schedule 900mg/hs, and provide prn zofran for nausea 06/22 - Start Risperdal 0.5 mg. HS and 0.5 mg. q4h prn 06/23 - Increase Risperdal to 2 mg twice a day - Continue current dose of lithium with lithium level on 06/25 - If presentation continues consider DC of lithium, after which he describes feeling amped up 06/24 - Continue risperidone 2 mg twice a day, will need fasting labs if he is going to continue on this medication. - Check lithium trough level tomorrow; if subtherapeutic may need to increase dose, but if in the therapeutic range, and will likely need to be discontinued as he has not responded. - Patient is going to work on a schedule to better structure his time at home and trying to balance between work and family time. He is attending groups and benefiting from programming here. 06/25 - Continue current meds, and encourage use of prn if feeling activated - Will trial Artane 5 mg. now to rule out akathisia 06/26 - Continue [place] 900mg qHS. Will have lithium level drawn tomorrow AM and determine need for increased dosage when results are received. - Artane 2mg TID ordered. Pt benefited from BID dosing, but was having breakthrough muscle stiffness. Will try to target with TID dose as patient would prefer to not have to request medications. 06/27 - Continue [place] 900mg qHS. [place] level 0.7 this am, showing low- therapeutic level. Due to ongoing nausea, will not increase at this time. - Stability reported with Risperdal and Artane. Continue as above. - Likely for discharge tomorrow AM if remains stable. (2) Suicidal ideation 06/20 - Every 15 minute safety checks (3) Anxiety 06/21 Given history of trauma and patient's recollection of "feelings" as a kid as well as "feelings after his 2nd marriage and of dtrs, this provider is less inclined to beleive he has Apserger's and possibly rather PTSD wtih psychological defense of shutting down to emotions. HIs present anxiety may be related to his nausea but cannot rule out that his defenses are coming down and that he is uncomfortable with his own emotions Given prior sensitivity to medications and needing to monitor bipolar I with lithium will not add medication for anxiety,but would consider strongly At a minimum he would benefit from ongoing therapy inpatient and outpatient Risk Factors Assessment Male: Yes : Yes /single/: No Health problems: No Substance use disorders: No Previous attempt: No Family history of suicide: No Previous psychiatric stay: No Hopelessness: No Smoker: No Protective Factors Assessment Cheondoism beliefs: No : Yes Responsible for young children: Yes Employed: Yes Stable relationships: Yes Supportive family: Yes Day of Discharge Assessment COURSE OF HOSPITALIZATION: The patient has been on our unit for 9 days. He was admitted voluntarily with some suicidal ideation in the setting of multiple stressors. He has twin [id number] daughters and a 13-year-old stepdaughter. He has legal issues over his head as a result of not finishing [employer] projects in the promised amount of time. He reported a long history of manic symptoms including feeling driven, unable to stop his thoughts, hyper focused therapy going on for years. He was lithium loaded with a resulting level of 0.7 and then started on Lithobid 900 mg at bedtime. Second 12 hour trough level was 0.7 yesterday. The lithium did not initially helped to slow his thoughts or behaviors and as a matter of fact said that he felt more revved up on lithium. Risperdal was added, 2 mg twice a day, which he felt was more helpful in slowing his thoughts and behaviors. He did experience some persistent nausea throughout his lithium therapy and so dosage was not increased based on that. His was involved in his treatment, came in for a family meeting. They're committed to one another but they agreed that he needed to be more structured and spend more time at home and less hyper-focused on work. He agreed to this. His and daughters came in almost every night to visit and these visits went well. He interacted well with his children. Diagnostically, there was also some concern that there may be a component of ADHD, and to that and we are recommending he have outpatient neuropsych testing. He had no further suicidal thinking throughout his stay. There was no evidence of a clear thought disorder in that he had no auditory or visual hallucinations. 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 He engaged well with others, felt that his time in the hospital was well spent. He did experience some akathisia with the Risperdal and so Artane 2 mg twice a day was added with benefit. DAY OF DISCHARGE ASSESSMENT: Today the patient is requesting discharge. He is considered to be improved over admission. He continues to deny any suicidal ideations, he says that his thoughts are slower, behavior calmer. He has worked on a safety plan which includes very specific structures for work and time at home. His will be able to pick him up today. Today he has just gotten out of bed and is mildly disheveled. Eye contact is good. Gait and station are within normal limits. Speech is of normal rate volume and tone. Affect is tired. Thoughts are organized, goal directed, and without evidence of thought disorder. Recent and remote memory are intact per conversation. Intelligence is estimated to be average. Insight and judgment are improved over admission. Laboratory Test 06/19/17 12:42 06/19/17 13:10 06/25/17 19:57 06/27/17 08:00 White Blood Count 5.42 Red Blood Count 4.84 Hemoglobin 14.9 Hematocrit 41.8 Mean Corpuscular Volume 86.4 Mean Corpuscular Hemoglobin 30.8 Mean Corpuscular Hemoglobin Concent 35.6 Platelet Count 250 Mean Platelet Volume 9.0 Neutrophils (%) (Auto) 48.9 Lymphocytes (%) (Auto) 41.3 Monocytes (%) (Auto) 8.1 Eosinophils (%) (Auto) 1.1 Basophils (%) (Auto) 0.4 Neutrophils # (Auto) 2.65 Lymphocytes # (Auto) 2.24 Monocytes # (Auto) 0.44 Eosinophils # (Auto) 0.06 Basophils # (Auto) 0.02 RDW Standard Deviation 41.2 RDW Coefficient of Variation 12.9 Immature Granulocyte % (Auto) 0.2 Immature Granulocyte # (Auto) 0.01 Sodium Level 137 Potassium Level 4.2 Chloride Level 103 Carbon Dioxide Level 29 Anion Gap 5.0 Blood Urea Nitrogen 12 Creatinine 0.93 Est Creatinine Clear Calc Drug Dose 121.7 Estimated GFR () 120.3 Estimated GFR (Non- 103.8 BUN/Creatinine Ratio 12.6 Random Glucose 99 Calcium Level 9.0 Total Bilirubin 0.5 Aspartate Amino Transferase (AST) 26 Alanine Aminotransferase (ALT) 55 Alkaline Phosphatase 59 Total Protein 7.8 Albumin 4.1 Globulin 3.7 Albumin/Globulin Ratio 1.1 Thyroid Stimulating Hormone (TSH) 0.933 Salicylates Level < 1.7 Acetaminophen Level < 2 Ethyl Alcohol mg/dL < 3.0 Urine Color YELLOW Urine Appearance CLOUDY Urine pH 6.5 Urine Specific [place] 1.025 Urine Protein NEG Urine Glucose (UA) NEG Urine Ketones NEG Urine Occult Blood NEG Urine Nitrite NEG Urine Bilirubin NEG Urine Urobilinogen NEG Urine Leukocyte Esterase NEG Urine WBC (Auto) 1-5 Urine RBC (Auto) 0-4 Urine Hyaline Casts (Auto) 1-5 Urine Epithelial Cells (Auto) 10-20 Urine Bacteria (Auto) NEG Urine Crystals CALCIUM OXALATE Urine Mucus PRESENT Urine Synthetic Stimulants see note Urine Opiates Screen NEG Urine Methadone, Qualitative NEG Urine Barbiturates NEG Urine Phencyclidine (PCP) Level NEG Ur Amphetamine/Methamphetamine NEG MDMA (Ecstasy) Screen NEG Urine Benzodiazepines Screen NEG Urine Cocaine Metabolite NEG Cannabinoids Comment see note Urine Synthetic Cannabinoids NEGATIVE Ur Synthetic Cannabinoids Confirm Urine Marijuana (THC) NEG [place] Level 0.4 0.7 Total Time Total Time Spent (min): Greater than 30 minutes Total Time Included: examination of the patient, discharge planning, medication reconciliation, communication with other providers Tobacco Cessation at Discharge Smoking Status: Never Smoker FDA approved Prescription: non-smoker
[2017-06-28] MEDS: TRIHEXYPHENIDYL HCL 2 MG TAB PO SCH (08:41)
[2017-06-28] MEDS: RISPERIDONE 2 MG TAB PO SCH (08:41)
--- NOTE | 2017-06-28 10:07 | Psych Management Progress Note ---
Psychiatry Miscellaneous Date of Service: Jun 28, 2017. Patient seen, MS assessed. Rates mood as 10/10 and hopeful around his discharged. He voiced positive regard for unit staff and programming and feels much improved. I personally participated in the medical decision making around his discharge and agree that he is free of SI and has reliable safety plan. Discharge order entered.
== END 2017-06-28 10:15 | disposition home or self-care (01) | DRG 885 ==
LOC: C.EDB 11:22 → C.MHU 16:26
PROVIDERS: ADMIT Psychiatry & Neurology Child & Adolescent Psychiatry; ATTEND Psychiatry & Neurology Psychiatry
DX: F31.9 Bipolar disorder, unspecified (principal); R45.851 Suicidal ideations; F41.9 Anxiety disorder, unspecified; J45.909 Unspecified asthma, uncomplicated; G40.909 Epilepsy, unspecified, not intractable, without status epilepticus; F17.200 Nicotine dependence, unspecified, uncomplicated; Z87.01 Personal history of pneumonia (recurrent); Z90.49 Acquired absence of other specified parts of digestive tract; Z80.9 Family history of malignant neoplasm, unspecified; Z82.49 Family history of ischemic heart disease and other diseases of the circulatory system

== ENCOUNTER 2017-09-25 16:53 | Emergency (ER) | payer OTHER ==
[~2017-09-25] VITALS: Ht 185.4 cm; Wt 98.0 kg
[~2017-09-25 16:53] MED LIST changes: -CYCL10TA6 PO; +LTHSR450 PO; +RSP2 PO; +TRIH2TAB3 PO; +ZFR4 PO
[2017-09-25 16:57] VITALS: TEMP 36.8; Ht 185.4 cm; Wt 98.0 kg
[2017-09-25] MEDS ORDERED: SODIUM CHLORIDE 0.9% 1000ML 1,000 ML IV STA (16:59)
[2017-09-25] MEDS ORDERED: ASPIRIN 324 MG CHEW PO STA (17:02)
[2017-09-25] MEDS ORDERED: KETOROLAC TROMETHAMINE 30 MG/ML VIAL IV STA (17:02)
[2017-09-25 17:16] LABS: BASO % 0.2 %; BASO ABS # 0.01 K/uL (0-0.2); EOS % 1.2 %; EOS ABS # 0.07 K/uL (0-0.5); HEMATOCRIT 42.8 % (42-52); HEMOGLOBIN 15.7 g/dL (14.0-18.0); IG# 0.01 K/uL (0.00-0.02); LYMPH % 47.3 %; LYMPH ABS # 2.69 K/uL (1.2-3.4); MEAN CELL VOLUME 84.8 fL (80-100); MEAN CORPUSCULAR HEMOGLOBIN 31.1 pg (25-34); MEAN CORPUSCULAR HGB CONC 36.7 g/dl (32-36); MEAN PLATELET VOLUME 9.4 fL (7.4-10.4); MONO % 7.7 %; MONO ABS # 0.44 K/uL (0.11-0.59); NEUT % 43.4 %; NEUT ABS # 2.47 K/uL (1.4-6.5); PLATELET COUNT 234 K/uL (130-400); RED CELL DISTRIBUTION WIDTH CV 13.5 % (11.5-14.5); RED CELL DISTRIBUTION WIDTH SD 41.3 fL (36.4-46.3); WHITE BLOOD COUNT 5.69 K/uL (4.8-10.8)
--- NOTE | 2017-09-25 17:16 | DIAGNOSTIC IMAGING REPORT ---
CHEST ONE VIEW PORTABLE CLINICAL HISTORY: Chest Pain dyspnea COMPARISON STUDY: 02/09/2017 FINDINGS: The bones soft tissues and hemidiaphragms are normal. The cardiomediastinal silhouette is normal. The lungs are clear. The pulmonary vasculature is normal. IMPRESSION: Negative chest. The above report was generated using voice recognition software. It may contain grammatical, syntax or spelling errors. Electronically signed by: Chris Martinez M.D. 09/25/2017 5:15 PM Dictated Date/Time: 09/25/2017 5:14 PM
[2017-09-25 17:18] VITALS: O2SAT 98
[2017-09-25 17:44] LABS: BLOOD UREA NITROGEN 15 mg/dl (7-18); CALCIUM 9.3 mg/dl (8.5-10.1); CARBON DIOXIDE 29 mmol/L (21-32); CREATININE 1.04 mg/dl (0.60-1.40); GLUCOSE 106 mg/dl (70-99); POTASSIUM 3.6 mmol/L (3.5-5.1); SODIUM 139 mmol/L (136-145)
[2017-09-25] MEDS ORDERED: TRIH2TAB2 PO (18:20)
[2017-09-25] MEDS ORDERED: VNTHFA/IN INH (18:20)
[2017-09-25] MEDS ORDERED: RISP1TAB68 PO (18:20)
[2017-09-25 19:50] VITALS: PULSE 70; O2SAT 96
[2017-09-25 19:59] VITALS: BP 136/96
--- NOTE | 2017-09-25 22:59 | EMERGENCY ROOM VISIT NOTE ---
History Report prepared by Jennifer: Raymundo Kumar Under the Supervision of: Dr. Renato Stanley D.O. First contact with patient: 16:54 Stated Complaint: PALPITATIONS, DIZZY WHEN STANDING History of Present Illness The patient is a 37 year old male who presents to the Emergency Room with complaints of persistent shortness of breath and palpitations starting last night. The patient states that he has felt his heart beating weirdly, and he has been having to take gasps for air. He additionally notes that he has been dizzy today and seeing stars. The patient is additionally complaining of left sided chest pain under his arm pit that feels like a stitch that occasionally worsens. The patient notes that he has been having left arm twitching, and left finger numbness and lip numbness, though he denies any left arm pain or jaw pain. 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 Patient denies diabetes, hypertension, hyperlipidemia, CAD, history of sudden at a young age, and smoking. Patient denies swelling of calves, recent trips, history of immobilization or recent surgery, prior history of DVT, hemoptysis, history of malignancy, or control/estrogen use. He denies any history of Marfan's disease and Denis -Danlos syndrome. Pt denies headache, change in vision, fevers, cough, runny nose, chest pain, shortness of breath, nausea, vomiting, diarrhea, pain with urination, and melena. Source of History: patient Onset: last night Position: other (heart) Quality: other (palpitations) Timing: other (persistent) Associated Symptoms: + chest pain, No cough Note: Associated symptoms: Dizziness, left arm twitching, left finger numbness, and lip numbness Review of Systems See HPI for pertinent positives & negatives. A total of 10 systems reviewed and were otherwise negative. Past Medical & Surgical Medical Problems: (1) Altered awareness, transient (2) Anxiety (3) Anxiety (4) Asthma (5) Asthma, Unspecified (6) Back pain (7) Bipolar I disorder with becky (8) DDD (degenerative disc disease), cervical (9) Degenerative disc disease (10) Dehydration (11) Dysuria (12) Epilepsy (13) Flu-like symptoms (14) History of epilepsy (15) History of seizures (16) Neuritis of left ulnar nerve (17) Personal History, Pneumonia (Recurrent) (18) Tobacco Use Disorder (19) Tobacco use disorder Surgical Problems: (1) H/O colonoscopy (2) H/O esophagogastroduodenoscopy (3) History of cholecystectomy (4) S/P cholecystectomy Family History FH: HTN (hypertension) FH: cancer FH: gallbladder disease FH: heart disease GRANDFATHER FH: migraines Social History Smoking Status: Never Smoker Alcohol Use: none Drug Use: none Marital Status: Housing Status: lives with significant other Occupation Status: employed Current/Historical Medications Scheduled Risperidone (Risperdal), 1 MG PO BID Trihexyphenidyl Hcl (Artane), 2 MG PO TID Scheduled PRN Albuterol Hfa (Ventolin Hfa), 2-4 PUFFS INH Q6H PRN for SOB/Wheezing Allergies Coded Allergies: Diazepam (Verified Allergy, Severe, WAS TOLD "NOT TO TAKE", 09/25/17) Gadobutrol (Verified Allergy, Severe, became code purple from [id number] adm, 09/25/17) Iodinated Diagnostic Agents (Verified Allergy, Severe, UNRESPONSIVE, ) Codeine (Verified Allergy, Mild, ITCHING, 09/25/17) Gadolinium Derivatives (Verified Adverse Reaction, Severe, Unresponsive requiring endotracheal intubation, 09/25/17) Unresponsive requiring endotracheal intubation visit [id number] Physical Exam Vital Signs Date Time Temp Pulse Resp B/P (MAP) Pulse Ox O2 Delivery O2 Flow Rate FiO2 09/25/17 19:59 136/96 09/25/17 19:50 70 17 96 09/25/17 19:45 67 18 98 Room Air 09/25/17 19:31 129/84 09/25/17 19:20 135/84 09/25/17 19:15 69 17 96 09/25/17 18:45 68 22 98 09/25/17 18:10 73 09/25/17 18:01 70 16 134/79 95 Room Air 09/25/17 17:18 98 Room Air 09/25/17 16:57 36.8 82 16 144/99 99 Room Air 09/25/17 16:56 98 Room Air Physical Exam GENERAL: Sitting up in bed, alert, well appearing, well nourished, no distress, non-toxic EYE EXAM: normal conjunctiva. OROPHARYNX: no exudate, no erythema, lips, buccal mucosa, and tongue normal and mucous membranes are moist NECK: supple, no nuchal rigidity, no adenopathy, non-tender LUNGS: Clear to auscultation. Normal chest wall mechanics HEART: no murmurs, S1 normal and S2 normal ABDOMEN: abdomen soft, non-tender, normo-active bowel sounds, no masses, no rebound or guarding. BACK: Back is symmetrical on inspection and there is no deformity, no midline tenderness, no CVA tenderness. SKIN: no rashes and no bruising UPPER EXTREMITIES: Upper extremities are shackled together. Radial pulses are equal bilaterally. Upper extremities are grossly normal. LOWER EXTREMITIES: No pitting edema. Calves are equal bilaterally. NEURO EXAM: Normal sensorium, cranial nerves II-XII grossly intact, normal speech, no gross weakness of arms, no gross weakness of legs. Medical Decision & Procedures ER Provider Diagnostic Interpretation: Radiology results as stated below per my review and the radiologist's interpretation: CHEST ONE VIEW PORTABLE CLINICAL HISTORY: Chest Pain dyspnea COMPARISON STUDY: 02/09/2017 FINDINGS: The bones soft tissues and hemidiaphragms are normal. The cardiomediastinal silhouette is normal. The lungs are clear. The pulmonary vasculature is normal. IMPRESSION: Negative chest. The above report was generated using voice recognition software. It may contain grammatical, syntax or spelling errors. Electronically signed by: Chris Martinez M.D. 09/25/2017 5:15 PM Dictated Date/Time: 09/25/2017 5:14 PM Laboratory Results 09/25/17 16:41 Red Blood Count 5.05, Mean Corpuscular Volume 84.8, Mean Corpuscular Hemoglobin 31.1, Mean Corpuscular Hemoglobin Concent 36.7, Mean Platelet Volume 9.4, Neutrophils (%) (Auto) 43.4, Lymphocytes (%) (Auto) 47.3, Monocytes (%) (Auto) 7.7, Eosinophils (%) (Auto) 1.2, Basophils (%) (Auto) 0.2, Neutrophils # (Auto) 2.47, Lymphocytes # (Auto) 2.69, Monocytes # (Auto) 0.44, Eosinophils # (Auto) 0.07, Basophils # (Auto) 0.01 4/27/18 16:41 Test 09/25/17 16:41 09/25/17 19:10 White Blood Count 5.69 K/uL (4.8-10.8) Red Blood Count 5.05 M/uL (4.7-6.1) Hemoglobin 15.7 g/dL (14.0-18.0) Hematocrit 42.8 % (42-52) Mean Corpuscular Volume 84.8 fL (80-100) Mean Corpuscular Hemoglobin 31.1 pg (25-34) Mean Corpuscular Hemoglobin Concent 36.7 g/dl (32-36) Platelet Count 234 K/uL (130-400) Mean Platelet Volume 9.4 fL (7.4-10.4) Neutrophils (%) (Auto) 43.4 % Lymphocytes (%) (Auto) 47.3 % Monocytes (%) (Auto) 7.7 % Eosinophils (%) (Auto) 1.2 % Basophils (%) (Auto) 0.2 % Neutrophils # (Auto) 2.47 K/uL (1.4-6.5) Lymphocytes # (Auto) 2.69 K/uL (1.2-3.4) Monocytes # (Auto) 0.44 K/uL (0.11-0.59) Eosinophils # (Auto) 0.07 K/uL (0-0.5) Basophils # (Auto) 0.01 K/uL (0-0.2) RDW Standard Deviation 41.3 fL (36.4-46.3) RDW Coefficient of Variation 13.5 % (11.5-14.5) Immature Granulocyte % (Auto) 0.2 % Immature Granulocyte # (Auto) 0.01 K/uL (0.00-0.02) Anion Gap 6.0 mmol/L (3-11) Est Creatinine Clear Calc Drug Dose 117.5 ml/min Estimated GFR () 104.3 Estimated GFR (Non- 90.0 BUN/Creatinine Ratio 14.2 (10-20) Calcium Level 9.3 mg/dl (8.5-10.1) Chemistry Specimen Hemolysis Troponin I < 0.015 ng/ml (0-0.045) Laboratory results per my review. Medications Administered Medications (Trade) Dose Ordered Sig/Maricel Route Start Time Stop Time Status Last Admin Dose Admin Sodium Chloride 1,000 ml @ 999 mls/hr Q1H1M STAT IV 09/25/17 16:59 09/25/17 17:59 DC 09/25/17 17:22 999 MLS/HR Ketorolac Tromethamine (Toradol Inj) 30 mg NOW STAT IV 09/25/17 17:02 09/25/17 17:03 DC 09/25/17 17:21 30 MG Aspirin (Aspirin Chew) 324 mg NOW STAT PO 09/25/17 17:02 09/25/17 17:03 DC 09/25/17 17:21 324 MG ECG Per My Interpretation Indication: palpitations Rate (beats per minute): 80 Rhythm: sinus rhythm Findings: RBBB, other (normal axis) ED Course ED COURSE: Vital signs were reviewed and showed hypertension. The patients medical record was reviewed The above diagnostic studies were performed and reviewed. ED treatments and interventions as stated above. 1653: The patient was evaluated in room C3. A complete history and physical examination was performed. 1658: Sodium Chloride 1000 ml @ 999 mls/hr IV 1702: Aspirin 324mg PO, Toradol 30mg IV 0: I reevaluated the patient, and he is feeling better. 1955: Upon reevaluation, the patient is doing well.I discussed my findings with the patient and he understands and agrees with the treatment plan. Based on the patients age, coexisting illnesses, exam and lab findings the decision to treat as an outpatient was made. The patient remained stable while under my care. The patient appeared well at the time of discharge. Medical Decision Differential diagnoses includes but is not limited to acute coronary syndrome, myocardial infarction, pericarditis, pulmonary embolus, aortic dissection, pneumonia, pneumothorax, musculoskeletal, shingles, esophageal. Patient is a 37-year-old male who presents to ER for palpitations. He also complains of some intermittent chest pain which started last night and is through his left axilla. No other exacerbating or remitting factors. CBC along with BMP and troponins were negative 2. Chest x-ray was unremarkable. EKG was nondiagnostic. Patient was PERC neg. patient was given Toradol and had significant improvement. Discussed with Pt concerning signs and symptoms to watch out for. Pt was instructed to follow up with their PCP and discussed with the patient their option to return to the ED at anytime for persistent or worsening symptoms. The appropriate anticipatory guidance and out-patient management, including indications for return to the emergency department, were explained at length to the patient and understood. Medication Reconcilliation Current Medication List: was personally reviewed by me Blood Pressure Screening Patient's blood pressure: Elevated blood pressure Blood pressure disposition: Elevated BP felt to be situational Impression Primary Impression: Palpitations Scribe Attestation The scribe's documentation has been prepared under my direction and personally reviewed by me in its entirety. I confirm that the note above accurately reflects all work, treatment, procedures, and medical decision making performed by me. Departure Information Dispostion Home / Self-Care Referrals Rocio Gonzalez M.D. (MEDICAL) (PCP) Forms HOME CARE DOCUMENTATION FORM, IMPORTANT VISIT INFORMATION, WORK / SCHOOL INSTRUCTIONS Patient Instructions ED Palpitations, My [facility] Additional Instructions Please follow up with your primary care doctor with in the next 24 hours. Any worsening of your symptoms, please return to the ED immediately. This includes any fevers greater than 100.4, worsening pain, chest pain, shortness breath, persistent nausea, vomiting, unable to eat or drink, or any other concerning signs or symptoms from your standpoint. Please take Tylenol or Motrin as needed for pain.
== END 2017-09-25 20:04 | disposition home or self-care (01) ==
LOC: EDBD 16:53 → C.EDC 16:55
DX: R00.2 Palpitations (principal); F31.9 Bipolar disorder, unspecified; J45.909 Unspecified asthma, uncomplicated; G40.909 Epilepsy, unspecified, not intractable, without status epilepticus; Z87.01 Personal history of pneumonia (recurrent); Z90.49 Acquired absence of other specified parts of digestive tract; Z98.890 Other specified postprocedural states; Z82.49 Family history of ischemic heart disease and other diseases of the circulatory system; Z82.0 Family history of epilepsy and other diseases of the nervous system; Z88.8 Allergy status to other drugs, medicaments and biological substances; Z88.5 Allergy status to narcotic agent; Z91.041 Radiographic dye allergy status; Z91.09 Other allergy status, other than to drugs and biological substances; Z79.899 Other long term (current) drug therapy